=== PATIENT | female | born 1980 | race Caucasian/White ===

== ENCOUNTER 2023-07-04 09:38 | Emergency (ER) | payer BC, SELFPAY ==
[2023-07-04] VITALS (16 sets, daily range): BP systolic 107–163; BP diastolic 51–97; PULSE 108–122; RESP 18–30; TEMP 36.8; O2SAT 96–100
--- NOTE | ~2023-07-04 | CT_ITS ---
EXAMINATION: CT pelvis w con DATE: 07/04/2023 11:03 INDICATION: Labial and perirectal abscess TECHNIQUE: Computed tomography (CT) of the pelvis was performed with 100 CC Omnipaque 350 intravenous contrast. Automated exposure control and iterative reconstruction technique were employed. Exam dose : 1226.26 mGy-cm total exam DLP. COMPARISON: None. FINDINGS: Normal appendix. Approximately 3.9 cm right ovarian cystic lesion is noted. No pelvic mass lesion or adenopathy is noted otherwise. There is extensive fat stranding from the left inguinal area into the left labia, extending posterior ly into the inferior aspect of the left buttock posteromedially. In the posterior medial buttock ther e appear to be a couple of possible small abscess cavities developing, measuring approximately 15 x 2 4 mm and 11 x 14 mm. IMPRESSION: Extensive left inguinal, labial and posteromedial inferior left buttock cellulitis with suggestion of some developing small abscesses in the posteromedial lower left buttock 3.9 mm right ovarian cystic lesion Reviewed, dictated and finalized at [facility]. Reviewed, dictated and finalized at [facility]. IMPRESSION: Extensive left inguinal, labial and posteromedial inferior left bu ttock cellulitis with suggestion of some developing small abscesses in the post eromedial lower left buttock 3.9 mm right ovarian cystic lesion
--- NOTE | 2023-07-04 09:54 | ECG_ITS ---
Measurements Intervals [place] Rate: 117 P: 76 [place]: 139 QRS: 36 QRSD: 91 T: 44 QT: 317 QTc: 443 Interpretive Statements SINUS TACHYCARDIA BASELINE ARTIFACT POSSIBLE LEFT ATRIAL ENLARGEMENT [-0.1mV P WAVE IN V1/V2] NONSPECIFIC ST ABNORMALITY BORDERLINE ECG NO PREVIOUS ECG AVAILABLE FOR COMPARISON Electronically Signed On 07-04-2023 14:41:00 CDT by Prashant Hanson M.D.
--- NOTE | 2023-07-04 09:57 | ED.SKABFB ---
HPI - Skin/Abscess/Foreign Bdy General Chief complaint: Skin/Abscess/Foreign Body <July Moon PA-C - Last Filed: 07/05/23 09:09> Stated complaint: wound to buttocks <July Moon PA-C - Last Filed: 07/05/23 09:09> Time Seen by Provider: 07/04/23 09:39 <July Moon PA-C - Last Filed: 07/05/23 09:09> History of Present Illness HPI narrative: 43-year-old female reports for evaluation for an abscess to her L buttock and L labia. Patient states she noticed a lump in her L glute approximately 1 week ago that was a few centimeters in size. States she forgot about the lesion until a couple days ago she was in the shower and felt that it had grown much larger. States yesterday began spreading into her right labia and had then become painful and more aggravated. She denies known fever, denies abdominal pain, drainage, pus or blood in her stool. She does states she has had nausea and vomiting but has also had a concurrent migraine since not sure if that is due to her migraine or the abscess. <KAREEN Snyder Last Filed: 07/05/23 09:09> Related Data Home medications: Home Medications Medication Instructions Recorded Confirmed metformin 1,000 mg tablet 1,000 mg PO BID 07/04/23 07/04/23 <July Moon PA-C - Last Filed: 07/05/23 09:09> Allergies/Adverse reactions: Allergies Allergy/AdvReac Type Severity Reaction Status Date / Time No Known Allergies Allergy Verified 07/04/23 09:42 <July Moon PA-C - Last Filed: 07/05/23 09:09> Review of Systems Review of Systems: CONSTITUTIONAL: Denies fever, chills EYES: Denies visual changes, redness, or discharge. ENT: Denies rhinorrhea, congestion, sore throat, or otalgia. CARDIOVASCULAR: Denies chest pain, palpitations, or edema. RESPIRATORY: Denies cough or dyspnea. GASTROINTESTINAL: Denies abdominal pain, nausea, vomiting, or diarrhea. GENITOURINARY: Denies dysuria or hematuria. SKIN: See HPI MUSCULOSKELETAL: Denies back pain, joint pain, or myalgia. NEUROLOGIC: Denies headache, numbness, dizziness, or weakness. PSYCHIATRIC: Denies anxiety or depression. <July Moon PA-C - Last Filed: 07/05/23 09:09> [facility] Family History Family History: Family History Mother Family history of autoimmune disorder Father Family history of diabetes mellitus in first degree relative Family history of coronary artery disease Family history of type 2 diabetes mellitus Family history of heart disease in male family member before age 55 Grandparent Family history of malignant neoplasm of breast Family history of amyotrophic lateral sclerosis Diabetes mellitus <July Moon PA-C - Last Filed: 07/05/23 09:09> Social History Social History: Social History Smoking status: Never smoker Alcohol intake: current <July Moon PA-C - Last Filed: 07/05/23 09:09> Exam Narrative: GENERAL: Well-appearing, in no acute distress. Patient resting comfortably in exam bed. She is pleasant and conversational. HEAD: Normocephalic EYES: PERRLA ENT: Nares clear. Mucous membranes moist. Oropharynx without tonsillar hypertrophy exudate or other lesions. NECK: Supple. CHEST: No respiratory distress. Clear to auscultation, no adventitious breath sounds. Kussmaul breathing. HEART: Regular rate and rhythm. No murmur heard. Normal peripheral pulses. ABDOMEN: Soft, nontender, normal active bowel sounds. No CVA tenderness. EXTREMITIES: Normal range of motion. No edema. SKIN: Large area of induration spreading from the mid L buttock into the entire L labia with overlying blanching erythema. There is a ~3cm area of fluctuance to the R buttock. No active drainage. No extension of abscess into rectum. No crepitus on palpation. NEURO: No focal deficits. Alert and oriented x3. PSYCH: Normal mood and
[2023-07-04] MEDS: ONDANSETRON INJ 4 MG/2 ML VIAL IV PUSH (10:07)
[2023-07-04] MEDS: SODIUM CHLORIDE 0.9% IV 1,000 ML 999 ML IV CONT (10:07)
[2023-07-04] MEDS: MORPHINE SULFATE (*CRX) 4 MG/ML INJ IV PUSH (10:07)
--- NOTE | 2023-07-04 10:16 | PC.NURSE ---
BS 374
[2023-07-04 10:19] LABS: Glucose Point of Care 374 mg/dl (65-105)
[2023-07-04 10:24] LABS: Hematocrit 47.3 % (37.0-47.0); Hemoglobin 15.5 g/dL (12.0-15.0); Mean Corpuscular HGB Conc 32.8 g/dl (32-36); Mean Corpuscular Hemoglobin 27.7 pg (26-34); Mean Corpuscular Volume 84.5 fl (80-100); Mean Platelet Volume 9.7 fl (7.4-10.4); Platelet Count Result 670 k/mm3 (150-375); Red Cell Distribution Width 12.8 % (11.5-14.5); White Blood Count 28.9 K/mm3 (4.5-10.0)
[2023-07-04] MEDS: metFORMIN HCL 500 MG TABLET 1000 MG PO (10:33)
[2023-07-04 10:36] LABS: Lactic Acid Reflex 3.7 mmol/L (0.7-2.0)
[2023-07-04 10:40] LABS: Alanine Aminotransferase 29 U/L (6-35); Albumin Level 4.1 g/dL (3.5-5.1); Alkaline Phosphatase 200 U/L (38-126); Anion Gap 23 mmol/L (8-16); Aspartate Amino Transferase 24 U/L (14-36); Blood Urea Nitrogen 8 mg/dL (7-17); Calcium 10.3 mg/dL (8.4-10.2); Carbon Dioxide 9 mmol/L (22-30); Chloride 100 mmol/L (98-107); Estimated CRCL calculation 143 ml/min; Estimated Glomerular Filt Rate > 60; Glucose 396 mg/dL (65-110); Potassium 3.8 mmol/L (3.4-5.0); Sodium 132 mmol/L (137-145)
[2023-07-04 10:45] LABS: Band Neutrophils Percent 12 % (0-6); Basophils Absolute Manual 0.57 K/mm3 (0.0-0.1); Basophils Percent Manual 2 % (0-1); Lymphocytes Absolute Manual 2.02 K/mm3 (1.1-4.5); Metamyelocytes Percent 1 %; Monocytes Absolute Manual 0.86 K/mm3 (0.1-0.90); Monocytes Percent Manual 3 % (3-9); Myelocytes Percent 1 %; Neutrophils Absolute Manual 24.85 K/mm3 (1.7-7.2); Neutrophils Percent Manual 74 % (46-73); Platelet Clumps Present; Platelet Estimate Increased (Adequate); Schistocytes None Seen (NORMAL); Total Cells Counted 100
[2023-07-04 10:47] LABS: Hyperchromasia 2+ (NORMAL)
--- NOTE | 2023-07-04 10:55 | PCRCNOTE ---
Pt. taken to CT, will obtain ABG when pt. returns
--- NOTE | 2023-07-04 11:05 | PC.NURSE ---
Pt to CT scan via stretcher at this time.
[2023-07-04 11:07] LABS: Erythrocyte Sedimentation Rate 14 mm/hr (0-20)
[2023-07-04 11:08] LABS: CRP 35.3 mg/dL (<1.0)
[2023-07-04] MEDS: CEFEPIME 2 GM/NS 50 ML 2 GM/50 ML BAG IVPB (11:09)
[2023-07-04 11:12] LABS: INR 1.2; Prothrombin Time 16.1 Seconds (11.1-14.7)
[2023-07-04 11:13] LABS: Partial Thromboplastin Time 43.2 SECONDS (22.3-36.8)
[2023-07-04 11:19] LABS: Alveolar/Arterial O2 Gradient 16.7 mmHg; Fractional Inspired Oxygen 21 %; HCO3 ABG 7.9 mEq/l (22.0-26.0); Oxygen Content ABG 19.7 %vol (16.0-22.0); Oxygen Saturation ABG 97.4 % (95.0-100.0); Oxyhemoglobin 96.5 % THb (90.0-100.0); PO2 ABG 110.5 mmHg (80.0-100.0); PO2 FiO2 Ratio Arterial Blood 5.26 %; Total Hemoglobin 14.4 g/dL (12.0-18.0)
[2023-07-04 11:20] LABS: pH ABG 7.243 (7.350-7.450)
[2023-07-04 11:21] LABS: Device ROOM AIR; Modified Allen's Test Pass; PCO2 ABG 18.8 mmHg (35.0-45.0); Site Drawn RIGHT RADIAL
[2023-07-04] MEDS: metroNIDAZOLE 500 MG/ISO 100ML 500 MG/100 ML BAG 100 MG IVPB ×2 (11:59→19:01)
[2023-07-04 12:52] LABS: Beta-Hydroxybutyrate/Acetoacetate 4.53 mmol/L (0.02-0.27)
[2023-07-04] MEDS: VANCOMYCIN 1,250 MG/NS 250 ML 1,250 MG/250 ML BAG 166.67 MG IVPB ×2 (12:57→14:30)
[2023-07-04 13:05] LABS: Glucose Point of Care 336 mg/dl (65-105)
[2023-07-04 13:19] LABS: Reflex Lactic Acid Yes or No Add Lactic
[2023-07-04 13:29] LABS: Anion Gap 15 mmol/L (8-16); Blood Urea Nitrogen 7 mg/dL (7-17); Carbon Dioxide 11 mmol/L (22-30); Chloride 103 mmol/L (98-107); Estimated CRCL calculation 165 ml/min; Estimated Glomerular Filt Rate > 60; Glucose 332 mg/dL (65-110); Potassium 4.2 mmol/L (3.4-5.0); Sodium 129 mmol/L (137-145)
[2023-07-04 13:56] LABS: Lactic Acid 1.5 mmol/L (0.7-2.0)
[2023-07-04] MEDS: INSULIN HUMAN REGULAR (*BKC) 100 UNITS/ML IV PUSH (14:11)
[2023-07-04 14:21] LABS: Magnesium 1.5 mg/dL (1.6-2.3)
[2023-07-04 15:09] LABS: Anion Gap 14 mmol/L (8-16); Blood Urea Nitrogen 7 mg/dL (7-17); Calcium 9.3 mg/dL (8.4-10.2); Carbon Dioxide 10 mmol/L (22-30); Chloride 107 mmol/L (98-107); Estimated CRCL calculation 165 ml/min; Estimated Glomerular Filt Rate > 60; Glucose 259 mg/dL (65-110); Potassium 4.4 mmol/L (3.4-5.0); Sodium 131 mmol/L (137-145)
[2023-07-04 15:11] LABS: Glucose Point of Care 292 mg/dl (65-105)
[2023-07-04] MEDS: INSULIN HUMAN REGULAR (*BKC) 100 UNITS in SODIUM CHLORIDE 0.9% IV 99 ML 15 UNITS IV CONT (15:12)
[2023-07-04 15:39] LABS: Hemoglobin A1C 10.3 % (<5.7)
--- NOTE | 2023-07-04 16:02 | PM.CNGS ---
Assessment and Plan Assessment and plan (1) Abscess of perineum: Code(s): L02.215 - Cutaneous abscess of perineum Status: Acute Assessment and Plan: Severe and rapidly spreading perineal infection in an obese diabetic female. With findings on exam and CT scan, I think this is very likely a necrotizing soft tissue infection of the perineum. She is severely ill with sepsis and no clear area of abscess. Recommend transfer to tertiary care facility for treatment as this may involve debridement of much of the perineum. I explained this to the patient and her . I also discussed with the emergency room provider, Nadia Moon PA-C. She will start IV antibiotics and IV fluids and arrange transfer. (2) Sepsis: Qualifiers: Sepsis acute organ dysfunction status: without acute organ dysfunction Sepsis type: sepsis due to unspecified organism Qualified Code(s): A41.9 - Sepsis, unspecified organism Code(s): A41.9 - Sepsis, unspecified organism Status: Acute Assessment and Plan: Due to rapidly progressing infection of perineum described above. Suspect necrotizing soft tissue infection. (3) DKA (diabetic ketoacidosis): Qualifiers: Diabetes mellitus complication detail: without coma Diabetes mellitus type: type 2 Qualified Code(s): E11.10 - Type 2 diabetes mellitus with ketoacidosis without coma Code(s): E11.10 - Type 2 diabetes mellitus with ketoacidosis without coma Status: Acute Assessment and Plan: Further complicating patient's care. History of Present Illness Consult details Consult date: 07/04/23 Requesting physician: July Moon PA-C Narrative: Patient is a 43-year-old woman who 6 days ago while in the shower noticed a nodule in the posterior lower left buttocks. It was not painful but just noticeable. That evening the patient developed a migraine headache and had nausea and vomiting associated with it. This is not abnormal when she has a migraine headache. She basically lost track of the nodule for at least a couple of days but then noticed that it seemed to be larger. It was still not painful or tender. Two days ago the nodule did start to hurt and she noticed rapid swelling in the area around the nodule. She came to the emergency room today. The pain and swelling had involved her left labia and perineum. She has never had anything like this before. The nodule had increased in size further by the time she came to the emergency room such that now even the right labia was very swollen. She is an insulin-dependent diabetic and is morbidly obese with a BMI of 46. In the emergency room, it was found that she had diabetic ketoacidosis as well as a white blood cell count of 28,900 with a marked left shift. CT scan of the pelvis showed extensive swelling and inflammation in the left inguinal, left labia, left buttocks area. There may be some small abscesses forming in the left buttocks area. I was asked to see the patient and came to the emergency room to evaluate. Review of Systems Review of Systems: All systems reviewed & are unremarkable except as noted in HPI and below (HPI and those items noted below) Constitutional: Constitutional: Reports as per HPI, Denies chills and Denies fever(s) Cardiovascular: Cardiovascular: Denies chest pain, Denies diaphoresis, Denies dyspnea and Denies paroxysmal nocturnal dyspnea Respiratory: Respiratory: Denies chest congestion, Denies cough and Denies dyspnea Gastrointestinal: Gastrointestinal: Reports as per HPI Genitourinary: Genitourinary: Reports as per HPI Integumentary/Breasts: Skin/Breast: Reports as per HPI Neurologic: Reports as per HPI and Reports headache(s) [facility] Family History Family History Mother Family history of autoimmune disorder Father Family history of diabetes mellitus in first degree relative Family history of coronary a
[2023-07-04 16:11] LABS: Glucose Point of Care 290 mg/dl (65-105)
[2023-07-04] MEDS: SODIUM CHLORIDE 0.9% IV 1,000 ML 150 ML (17:08)
[2023-07-04 17:11] LABS: Glucose Point of Care 283 mg/dl (65-105)
[2023-07-04 18:04] LABS: Glucose Point of Care 179 mg/dl (65-105)
[2023-07-04 18:29] LABS: Anion Gap 5 mmol/L (8-16); Blood Urea Nitrogen 4 mg/dL (7-17); Calcium 5.7 mg/dL (8.4-10.2); Carbon Dioxide 11 mmol/L (22-30); Chloride 118 mmol/L (98-107); Estimated CRCL calculation 301 ml/min; Estimated Glomerular Filt Rate > 60; Glucose 190 mg/dL (65-110); Potassium 2.5 mmol/L (3.4-5.0); Sodium 134 mmol/L (137-145)
--- NOTE | 2023-07-04 18:33 | ECG_ITS ---
Measurements Intervals [place] Rate: 108 P: 63 NM: 138 QRS: 12 QRSD: 87 T: 3 QT: 315 QTc: 424 Interpretive Statements SINUS TACHYCARDIA BASELINE ARTIFACT BORDERLINE ECG COMPARED TO ECG 07/04/2023 10:14:38 NO SIGNIFICANT CHANGES Electronically Signed On 07-05-2023 13:37:44 CDT by Prashant Hanson M.D.
[2023-07-04] MEDS: HYDROmorphone HCL INJ (*CRX) 1 MG/ML SYR IV PUSH (19:00)
[2023-07-04] MEDS: POTASSIUM CHLORIDE INJ 40 MEQ in SODIUM CHLORIDE 0.9% IV 500 ML 130 MEQ IVPB (19:00)
[2023-07-04] MEDS: POTASSIUM CHLORIDE 20 MEQ PACKET (FOR LIQUID) 40 MEQ PO (19:00)
[2023-07-04] MEDS: CALCIUM GLUC 2,000 MG/NS 100ML 2,000 MG/100 ML BAG 100 MG IVPB (19:01)
[2023-07-04] MEDS: MAGNESIUM SULF 2 GM/WATER 50ML 2 GM/50 ML BAG IVPB (19:01)
--- NOTE | 2023-07-04 19:37 | PC.NURSE ---
Report given to EMS and SICU called to notify of pending arrival.
== END 2023-07-04 19:48 | disposition short-term general hospital (02) ==
PROVIDERS: Emergency Provider Physician Assistant
DX: L03.317 Cellulitis of buttock (principal); A41.9 Sepsis, unspecified organism; E11.10 Type 2 diabetes mellitus with ketoacidosis without coma; Z79.84 Long term (current) use of oral hypoglycemic drugs
CPT/HCPCS: 36415; 36600; 72193; 80048; 80053; 81025; 82010; 82805; 82948; 83036; 83605; 83735; 84100; 85025; 85610; 85652; 85730; 86140; 87040; 93005; 96361; 96365; 96366; 96367; 96368; 96375; 99285; A9270; J0613; J0692; J1170; J1815; J1836; J2270; J2405; J3370; J3475; J3480; J7030; J7040; J7120; Q9967

== ENCOUNTER 2024-09-10 09:06 | Emergency (ER) | payer BC, SELFPAY ==
[2024-09-10 09:23] VITALS: BP 118/71; PULSE 94; RESP 16; TEMP 36.8; O2SAT 100
[2024-09-10 09:27] LABS: EDUAAPPEAR Cloudy; EDUABILI Negative (Negative); EDUABLOOD 3+ (Negative); EDUACOLOR1 Amber; EDUAGLUCOSE Negative (Negative); EDUAKETONE 1+ (Negative); EDUALEUKO 1+ (Negative); EDUANITRATE Positive (Negative); EDUAPROTEIN 2+ (Negative)
--- NOTE | 2024-09-10 09:31 | ED.FEMALEGU ---
HPI - Female Genitourinary General Chief complaint: Urogenital-Female Stated complaint: UTI Time Seen by Provider: 09/10/24 09:36 Source: patient and RN notes reviewed Mode of arrival: ambulatory Limitations: no limitations History of Present Illness HPI Narrative: 44-year-old female presents with concern for urinary tract infection. She reports 2 day history of dysuria, frequency, urgency, back pain, fever, aches, chills, sweats. She reports history of urinary tract infections, she had one 3 weeks ago where she had the same symptoms and she was treated with Macrobid. MD elicited complaint: UTI Related Data Home Medications ?Medication ?Instructions ?Recorded ?Confirmed ?Last Taken ?Type Mounjaro 09/10/24 Unknown History blood-glucose sensor (Dexcom G7 09/10/24 Unknown History Sensor device) trazodone .ROUTE 09/10/24 Unknown History Allergies Allergy/AdvReac Type Severity Reaction Status Date / Time No Known Allergies Allergy Verified 09/10/24 09:21 Review of Systems Review of Systems: CONSTITUTIONAL: Reports malaise, chills, sweats, fever. CARDIOVASCULAR: Denies chest pain, palpitations, or edema. RESPIRATORY: Denies cough or dyspnea. GASTROINTESTINAL: Denies abdominal pain, nausea, vomiting, diarrhea GENITOURINARY: Reports dysuria, frequency, urgency, flank pain SKIN: Denies rash or itching. MUSCULOSKELETAL: Reports back pain, myalgia. All systems reviewed & are unremarkable except as noted in HPI and below PMFSH Family History Family History Mother Family history of autoimmune disorder Father Family history of diabetes mellitus in first degree relative Family history of coronary artery disease Family history of type 2 diabetes mellitus Family history of heart disease in male family member before age 55 Grandparent Family history of malignant neoplasm of breast Family history of amyotrophic lateral sclerosis Diabetes mellitus Social History Social History Smoking status: Never smoker Alcohol intake: current Comments At time of signature, agree with nursing past medical, surgical, social and family history. There is no relevant family history pertinent to the presenting complaint Exam Narrative: GENERAL: Nontoxic-appearing, well-nourished, and in no acute distress. HEAD: Normocephalic. EYES: PERRLA, conjunctivae clear. NECK: Supple. No lymphadenopathy CHEST: Clear to auscultation. No respiratory distress. HEART: Regular rate and rhythm. ABDOMEN: Soft, nontender upon palpation, nondistended, normal active bowel sounds, no palpable or pulsatile masses, no guarding. No CVA tenderness SKIN: Warm, dry, no rash. NEURO: Alert and oriented x3. PSYCH: Normal mood and affect Course Course Emergency Course: Patient is aware of diagnosis, understands and agrees to treatment plan. Anticipatory guidance given. Patient agrees to follow-up as directed and is aware of reasons to seek care at the emergency department. Portions of this record may have been created with voice recognition software Level of Care: Express Care Visit Vital Signs Vital signs: Vital Signs Temperature 98.3 F 09/10/24 09:23 Pulse Rate 94 09/10/24 09:23 Respiratory Rate 16 09/10/24 09:23 Blood Pressure 118/71 09/10/24 09:23 Pulse Oximetry 100 09/10/24 09:23 Oxygen Delivery Room Air 09/10/24 09:23 Temperature 98.3 F 09/10/24 09:23 Pulse Rate 94 09/10/24 09:23 Respiratory Rate 16 09/10/24 09:23 Blood Pressure 118/71 09/10/24 09:23 Pulse Oximetry 100 09/10/24 09:23 Oxygen Delivery Room Air 09/10/24 09:23 Reviewed. MDM - Female Genitourinary MDM Narrative Medical decision making narrative: Exam findings and UA show no acute concerns or changes; patient is non-toxic appearing and is in no distress. Patient is appropriate for outpatient treatment and follow-up. Differential Diagnosis Differential diagnosis: Likely urinary tract infection and cystitis Lab Data Labs: Lab Results 09/10/24 Range/Units 09:23 POC Urine Color Sarai POC Urine Clarity Cloudy POC Urine pH 6.0 POC Ur Specif [place] 1.020 POC Urine Protein 2+ (Negative) POC Ur Glucose (UA) Negative (Negative) POC Urine Ketones 1+ (Negative) POC Urine Blood 3+ (Negative) POC Urine Nitrite Positive (Negative) POC Urine Bilirubin Negative (Negative) POC Urine Urobilinogen 2.0 POC U Leukocyte Esteras 1+ (Negative) Critical Care Time Critical Care Time Critical Care Time: No Discharge Plan Discharge Clinical Impression: Urinary tract infection Patient Disposition: Home, Self-Care Condition: Stable Instructions: Antibiotic Form, Urinary Tract Infection in Women (ED) Additional Instructions: We will send a urine culture to the lab; if the culture identifies an organism that the prescribed antibiotic will not treat, you will receive a phone call from an urgent care staff member and an appropriate antibiotic will be prescribed. -Your symptoms should begin to improve within a day of starting antibiotics. But you should finish all the antibiotic pills you get. Otherwise your infection might come back. -Also recommend: increase water intake. Tylenol/ibuprofen as needed for pain or fever -Follow-up with your primary care provider for urine recheck or seek ER visit if condition worsens with high fever, nausea, vomiting and severe back pain. Patient Language: Romansh Prescriptions: New ciprofloxacin HCl 500 mg tablet 500 mg PO Q12H 7 Days Qty: 14 0RF No Action (DME) Dexcom G7 Sensor Device MISCELLANEOUS Mounjaro trazodone .ROUTE Follow-up/Referrals: Renetta,Jerel Jose MD [Primary Care Provider] - Time of Disposition: 09:49
== END 2024-09-10 09:55 | disposition home or self-care (01) ==
PROVIDERS: Emergency Provider Nurse Practitioner; PCP Family Medicine
DX: N39.0 Urinary tract infection, site not specified (principal); B96.20 Unspecified Escherichia coli [E. coli] as the cause of diseases classified elsewhere
CPT/HCPCS: 81003; 87077; 87086; 87186; 99213; G0463

== ENCOUNTER 2024-12-05 20:50 | Emergency (ER) | payer OTHER, BC, SELFPAY ==
--- NOTE | ~2024-12-05 | XR_ITS ---
HISTORY: puncture COMPARISON: None TECHNIQUE: 2 views of the right great toe were performed FINDINGS: No acute or subacute fracture. Joint spaces are preserved and alignment is maintained. Along the medial side of the distal metaphysis of the first metatarsal is a submillimeter oval-shaped radiopaque density for which a foreign body can't be excluded. Multiple views were performed, however this abnormality was not demonstrated specifically to be withi n the soft tissues. This may simply be an asymmetric density of bone. Please correspond with these fi ndings to the patient's clinical examination for further evaluation. Age-appropriate mineralization. IMPRESSION: No acute fracture or dislocation. Indeterminate findings along the medial distal metaphysis of the first metatarsal (as detailed above) for which a radiopaque foreign body cannot be excluded. Please correspond with these findings to the patient's clinical examination for further evaluation. Reviewed, dictated and finalized at location A. IMPRESSION: No acute fracture or dislocation. Indeterminate findings along the medial distal metaphysis of the first metatars al (as detailed above) for which a radiopaque foreign body cannot be excluded. Please correspond with these findings to the patient's clinical examination for further evaluation.
--- OUTSIDE RECORDS SUMMARY | 2024-12-05 20:52 | XMS_ITS ---
Author Organization 1 OF Jonatan huffman [facility] Address [address] [address] [place] [address] Care Team Providers Care Auditor In Charge Name Role Phone Jerel Jackson Primary Care Provider Jarred Donnelly Unavailable [phone] Allergies No Known Allergies REASON FOR VISIT blister on toe Medications Medication SIG (Take, Route, Frequency, Duration) Notes Start Date End Date Status Doxycycline Monohydrate 100 MG 1 tablet Orally every 12 hrs for 7 days 08/18/2022 Not-Taking Doxycycline Hyclate 100 MG 1 tablet Oral ly Twice a day for 7 days 03/26/2023 Not-Taking metroNIDAZOLE 500 MG 1 tablet Orally every 8 hrs for 10 day(s) 04/24/2023 Not-Taking metroNIDAZOLE 500 MG 1 tablet Orally every 8 hrs for 7 days 04/02/2023 Not-Taking Cipro 500 MG 1 tablet Orally Twice a day for 7 days 03/26/2023 Not-Taking Doxycycline Hyclate 100 MG 1 tablet Oral ly Twice a day for 7 days 01/29/2024 Not-Taking Mounjaro 10 MG/0.5ML as directed Subcutaneous Active Doxycycline Hyclate 100 MG 1 tablet Oral ly Twice a day for 7 days 03/17/2024 Not-Taking Tirzepatide Active hydroCHLOROthiazide Not-Taking traZODone HCl 50 MG 1 tablet at bedtime as needed Orally Once a day Active Cefadroxil 500 MG 1 capsule Orally every 12 hrs for 7 days 10/17/2024 Active Atorvastatin Calcium 40 MG 1 tablet Oral ly Once a day Active Problems Problem Type SNOMED Code ICD Code Onset Dates Problem Status W/U Status Risk Notes Problem [id number] Non-pressure chronic ulcer of other part of right foot with fat layer exposed (L97.512) Active confirmed Vital Signs Height 71 in 10/17/2024 Weight 245 lbs 10/17/2024 BMI 34.17 kg/m2 10/17/2024 Encounters Encounter Location Date Provider Diagnosis 3 [facility] Damon Lucio DPM [address] [place] [address] 10/17/2024 Jarred Taveras Paronychia of toe of right foot L03.031 ; Ingrowing nail L60.0 ; Toe pain, right M79.674 ; Non-pressure chronic ulcer of other part of right foot with fat layer exposed L97.512 and Type 2 diabetes mellitus with foot ulcer E11.621 Assessments Encounter Date Diagnosis (ICD Code) Assessment Notes Treatment Notes Treatment Clinical Notes Section Notes 10/17/2024 Paronychia of toe of right foot (ICD-10 - L03.031) 10/17/2024 Ingrowing nail (ICD-10 - L60.0) Discussed ingrown toenail condition and explained in detail conservative and surgical options of care including debridement / slant back procedure vs nail avulsion vs matrixectomy. Discussed pros and cons of each procedure including temporary relief vs more permanent relief with matrixectomy procedure but longer healing time. Patient elected to proceed with avulsion procedure of the affected toe(s). 10/17/2024 Toe pain, right (ICD-10 - M79.674) 10/17/2024 Non-pressure chronic ulcer of other part of right foot with fat layer exposed (ICD-10 - L97.512) 10/17/2024 Type 2 diabetes mellitus with foot ulcer (ICD-10 - E11.621) Plan Of Treatment Medication Medication Name Sig Start Date Stop Date Notes Cefadroxil 500 MG 1 capsule Orally every 12 hrs for 7 days 10/17/2024 Treatment Notes Assessment Notes Ingrowing nail Discussed ingrown to enail condition and explained in detail conservative and surgical options of care including debridement / slant back procedure vs nail avulsion vs matrixectomy. Discussed pros and cons of each procedure including temporary relief vs more permanent relief with matrixectomy procedure but longer healing time. Patient elected to proceed with avulsion procedure of the affected toe(s). Next Appt Details Follow Up: 2 Weeks, Reason: Procedure Notes * Category Sub-Category Detail Notes NAIL PROCEDURES: Nail avulsion (33410): Discusse d procedure and associated recovery period as well as potential risks and complications including, but not limited to recurrence of ingrown toenail, infection, worsening of condition, loss of entire toenail, loss of digit. Advised potential need for resection hypertrophic periungual tissue to help prevent recurrence of the condition. No guarantees given. Patient agreed to proceed with procedure consisting of:,total nail avulsion of: T6. Consent form reviewed and signed by patient / guardian. Local anesthesia was not obtained secondary to severe neuropathy., Aseptic prep of the toe(s) performed with betadine and following confirmation of anesthesia, , Avulsion procedure performed utilizing sterile instrumentation and atraumatic technique with resection of any hypertrophic granulation tissue as necessary. , The wound was then irrigated with betadine. Bacitracin ointment and DSD was applied to the wound and post-op instructions were dispensed and discussed. STERILE TRAY & INSTRUMENTS Utilization o f sterile tray and instrumentation along with aseptic technique. (A4550) Progress Notes * STEFANY DOB: [birth year] (44 yo F)Acc No.[id number]:10/17/2024 Progress Notes Patient: Jessica RICO Provider: Yuliana Taveras DPM :1980 A ge:44 Y S ex:Female Date:10/17/2024 Address:[facility] Pcp:Jerel Jackson Subjective: * Chief Complaints: * B edilson on toe * HPI: Yesenia Castellano assisting with visit:: Chart Prep Daily desai. HPI/Rooming: Daily jordan reason for visit:: 44 y ear old female PTO with chief complaint of blister on Right T6. She states this issue started after yesterday and has been bothering her since. Patient states she has no idea how she got the blister, but she has found herself on her feet a lot the past couple weeks. * Medical History: * Medications: T akingAtorvastatin Calcium 40 MG Tablet 1 tablet Orally Once a day Tirzepatide traZODone HCl 50 MG Tablet 1 tablet at bedtime as needed Orally Once a day Mounjaro 10 MG/0.5ML Solution Pen-injector as directed Subcutaneous Taking Atorvastatin Calcium 40 MG Tablet 1 tablet Orally Once a day Taking Tirzepatide Taking traZODone HCl 50 MG Tablet 1 tablet at bedtime as needed Orally Once a day Taking Mounjaro 10 MG/0.5ML Solution Pen-injector as directed Subcutaneous Not-Taking/PRNhydroCHLOROthiazide Doxycycline Hyclate 100 MG Tablet 1 tablet Orally Twice a day Doxycycline Hyclate 100 MG Tablet 1 tablet Orally Twice a day metroNIDAZOLE 500 MG Tablet 1 tablet Orally every 8 hrs metroNIDAZOLE 500 MG Tablet 1 tablet Orally every 8 hrs Doxycycline Monohydrate 100 MG Tablet 1 tablet Orally every 12 hrs Doxycycline Hyclate 100 MG Tablet 1 tablet Orally Twice a day Cipro 500 MG Tablet 1 tablet Orally Twice a day Not-Taking/PRN hydroCHLOROthiazide Not- Taking/PRN Doxycycline Hyclate 100 MG Tablet 1 tablet Orally Twice a day Not-Taking/PRN Doxycycline Hyclate 100 MG Tablet 1 tablet Orally Twice a day Not-Taking/PRN metroNIDAZOLE 500 MG Tablet 1 tablet Orally every 8 hrs Not-Taking/PRN metroNIDAZOLE 500 MG Tablet 1 tablet Orally every 8 hrs Not-Taking/PRN Doxycycline Monohydrate 100 MG Tablet 1 tablet Orally every 12 hrs Not-Taking/PRN Doxycycline Hyclate 100 MG Tablet 1 tablet Orally Twice a day Not-Taking/PRN Cipro 500 MG Tablet 1 tablet Orally Twice a day DiscontinuedLORazepam 0.5 MG Tablet 1 tablet at bedtime as needed Orally Once a day Prochlorperazine Gabapentin dexAMETHasone 20 MG Tablet as directed Orally Zofran metFORMIN HCl Medication List reviewed and reconciled with the patientDiscontinued LORazepam 0.5 MG Tablet 1 tablet at bedtime as needed Orally Once a day Discontinued Prochlorperazine Discontinued Gabapentin Discontinued dexAMETHasone 20 MG Tablet as directed Orally Discontinued Zofran Discontinued metFORMIN HCl Medication List reviewed and reconciled with the patient * Allergies: N .K.D.A.no[Allergies Verified] Objective: * Vitals: W t:245lbs, Wt-k.13 kg, Ht:71in, BMI:34.17Index. * Examination: G eneral Examination: Constitutional / Appearance: N o acute distress , Well nourished, Appropriate personal hygiene. Mental status: C ooperative, Oriented to person, place and time, Mood and affect: normal, Judgement and intellect: normal with appropriate response to questions. Shoes today: X XXX. T here is a sanguinous bulla noted to the distal aspect of the right second digit with nail involvement with associated erythema but no formal cellulitis or malodor which after avulsion reveals a full-thickness ulceration without probing to bone. W ound Evaluation: : Wound A L ocation: Distal T6, Date of initial evaluation: 10/17/2024 Measurement Hx (following debridement): 10/17/2024: 2.5 cm x 2.9 cm x 0.2 cm depth Appearance today:,, (wound depth: subcutaneous / fatty tissue) SEE EXAM. L ower Extremity DERM: : Ingrown nail / onychia noted to: N ail plate(s) of T6, with periungual erythema and edema, drainage, No cellulitis., No granuloma.. Assessment: * Assessment: 1. I ngrowing nail - L60.0 2 . P aronychia of toe of right foot - L03.031 (Primary) 3 . T oe pain, right - M79.674 4 . N on-pressure chronic ulcer of other part of right foot with fat layer exposed - L97.512 5 . T ype 2 diabetes mellitus with foot ulcer - E11.621 Plan: * Treatment: 2. I ngrowing nail Notes:Discussed ingrown toenail condition and explained in detail conservative and surgical options of care including debridement / slant back procedure vs nail avulsion vs matrixectomy. Discussed pros and cons of each procedure including temporary relief vs more permanent relief with matrixectomy procedure but longer healing time. Patient elected to proceed with avulsion procedure of the affected toe(s). * Procedures: N AIL PROCEDURES:: Nail avulsion (19018): D iscussed procedure and associated recovery period as well as potential risks and complications including, but not limited to recurrence of ingrown toenail, infection, worsening of condition, loss of entire toenail, loss of digit. Advised potential need for resection hypertrophic periungual tissue to help prevent recurrence of the condition. No guarantees given. Patient agreed to proceed with procedure consisting of:,total nail avulsion of: T6. Consent form reviewed and signed by patient / guardian. Local anesthesia was not obtained secondary to severe neuropathy., Aseptic prep of the toe(s) performed with betadine and following confirmation of anesthesia, , Avulsion procedure performed utilizing sterile instrumentation and atraumatic technique with resection of any hypertrophic granulation tissue as necessary. , The wound was then irrigated with betadine. Bacitracin ointment and DSD was applied to the wound and post-op instructions were dispensed and discussed.. STERILE TRAY & INSTRUMENTS U tilization of sterile tray and instrumentation along with aseptic technique. (A4550). * Procedure Codes: 1 1730 REMOVAL OF NAIL PLATE, Modifiers: T6 A4550 STERILE TRAY * Follow Up: 2 Weeks * Images: * TANCE ABUSE CLINICIAN Sign off status: Completed true * Provider: Yuliana Taveras DPM Date: 0 10/17/2024 Generated for Harvinder núñez/Shauna/Gavinitting on: 0 12/05/2024 08:52 PM CDT History and Physical Notes * HPI (History of Present Illness) Category Sub-Category Detail Notes Category Not es Primary reason for visit: 44 year old female PTO with chief complaint of blister on Right T6. She states this issue started after yesterday and has been bothering her since. Patient states she has no idea how she got the blister, but she has found herself on her feet a lot the past couple weeks. MA assisting with visit: HPI/Rooming: Wing Chart Prep Wing Examination Category Sub-Category Detail Notes Category Not es General Examination Mental status: Cooperative, Oriented to person, place and time, Mood and affect: normal, Judgement and intellect: normal with appropriate response to questions There is a sanguinous bulla noted to the distal aspect of the right second digit with nail involvement with associated erythema but no formal cellulitis or malodor which after avulsion reveals a full-thickness ulceration without probing to bone. Shoes today: XXXX Exam unchanged from prior visit: Constitutional / Appearance: No acute di stress , Well nourished, Appropriate personal hygiene Lower Extremity DERM: Ingrown nail / kacey ildefonso noted to: Nail plate(s) of T6, with periungual erythema and edema, drainage, No cellulitis., No granuloma. Wound Evaluation: Wound A Location: Dist al T6 , Date of initial evaluation: 10/17/2024 Measurement Hx (following debridement): 10/17/2024: 2.5 cm x 2.9 cm x 0.2 cm depth Appearance today:,, (wound depth: subcutaneous / fatty tissue) SEE EXAM
--- OUTSIDE RECORDS SUMMARY | 2024-12-05 20:53 | XMS_ITS | Encounter Summary ---
Author Organization [facility] Healthcare Address [address] [place] [address] Care Team Providers Care Burr Bench Hand Name Role Phone Jerel Jackson MD Primary Care Provider + Sallie Etienne MD Unavailable Darcy Hart MD Unavailable [phone] Encounter Details Date Type Department Care Team (Late st Contact Info) Description 08/25/2024 Telephone [facility] Advanced Medicine Radiation Oncology [address] [facility] Advanced Medicine [facility] Level [place], [place] [id number] Jessica Storey NP [address] [facility] [address] [place], [place] [id number] Social History Tobacco Use Types Packs/Day Years Used Date Smoking Tobacco: Never Smokeless Tobacco: Never AUDIT-C Answer Date Recorded Q1: How often do you have a drink containing alcohol? Never 12/29/2023 Q2: How many drinks containi ng alcohol do you have on a typical day when you are drinking? Patient does not drink Q3: How often do you have si x or more drinks on one occasion? Never 12/29/2023 PHQ-2 Answer Date Recorded PHQ-2 Total Score (If total score is 3 or more points, staff should administer the PHQ-9) 0 08/18/2024 Hunger Vital Sign Answer Date Recorded Within the past 12 months, y ou worried that your food would run out before you got the money to buy more. Never true 09/10/19 24 Within the past 12 months, t he food you bought just didn't last and you didn't have money to get more. Never true 09/10/2023 Personal Safety Answer Date Recorded Have you ever been in or are you currently in a harmful physical or emotional relationship or is someone making you feel afraid or unsafe? Denies 12/29/2023 Comments No Sex and Gender Information Value Date Recorded Sex Assigned at Not on file Legal Sex Female 8:38 AM SET UP [employer] Gender Identity Not on file Sexual Orientation Not on file documented as of this encounter Plan of Treatment Upcoming Encounters Date Type Department Care Team (Late st Contact Info) Description 12/06/2024 11:20 AM CDT Office Visit [facility] Obstetrics and Gynecology [address] [facility] 13th [place] [address] [place] [id number] Darcy Hart MD [address] [place] [phone] [place], [place] [phone] Encounter for routine cancer follow-up (Primary Dx); Endometrioid adenocarcinoma of uterus (HCC); Hypertension, unspecified type documented as of this encounter Visit Diagnoses Not on filedocumented in this encounter Care Teams Burr Bench Hand Relationship Specialty Start Date End Date Jerel Jackson MD [address] [place] [id number] PCP - General Family Medicine 12/04/21 Sallie Etienne MD [address] [facility] [address] [place] [address] Radiation Oncologist Radiation Oncology 04/15/24 Darcy Hart MD [address] [facility] DIV OBGYN GYNECOLOGIC ONCOLOGY[address] [address] Surgeon Gynecologic Oncology 04/18/24 documented as of this encounter
--- OUTSIDE RECORDS SUMMARY | 2024-12-05 20:53 | XMS_ITS ---
Author Organization [facility] Address [address] [place] [address] Care Team Providers Care Waterworks Pump Station Operator Name Role Phone Jerel Jackson MD Primary Care Provider + Sallie Etienne MD Unavailable Darcy Hart MD Unavailable [phone] Active Problems Problem Noted Date Diagnosed Date Hammertoe of right foot 12/05/2024 Endometrial carcinoma 12/28/2023 Annual physical exam 10/30/2023 Endometrial cancer 09/11/2023 JANUSZ (generalized anxiety disorder) 07/20/2023 Assessment & Plan (2024 2:40 PM CDT): - stable - continue hydroxyzine Assessment & Plan (09/08/2023 2:36 PM CORPORATE LEGAL SECRETARY): - stable - continue current medication - consider counseling Assessment & Plan (07/20/2023 3:43 PM CORPORATE LEGAL SECRETARY): - uncontrolled - will start hydroxyzine 25mg tid prn - if sx continue will consider adding prozac - pt not interested in counseling at this time - fu in 2 mo or sooner prn Psychophysiological insomnia 07/20/2023 Assessment & Plan (2024 2:39 PM CDT): - stable - continue trazodone Assessment & Plan (09/08/2023 2:36 PM CORPORATE LEGAL SECRETARY): - stable - continue current medication Assessment & Plan (07/20/2023 3:43 PM CORPORATE LEGAL SECRETARY): - uncontrolled - start trazodone 50mg qhs, may increase to 100mg qhs as needed for sleep - f/u in 2 mo Dyslipidemia 07/15/2023 Assessment & Plan (06/01/2024 4:30 PM CDT): 44 y.o. and female with mixed hyperlipidemia associated with type 2 diabetes mellitus, on Rosuvastatin 40 mg/day; most recent lipid profile reviewed. Diabetes and dyslipidemia (increased LDL-C and/or TGs) are both high risk conditions for ASCVD ASCVD 10-year risk score = 1.0% (Mod-intensity statin recommended because of known diabetes and 10-year risk <7.5%) Lab Results Component Value Date CHOL 117 12/01/2023 TRIG 130 12/01/2023 HDL 36 (L) 12/01/2023 LDLCALC 55 12/01/2023 No results found for: LDLDIRECT No results found for: LIPOA No results found for: APOB No results found for: HSCRP Consider checking Lp(a) and ApoB; especially if personal history or first-degree relative with premature ASCVD (particularly if otherwise considered low-risk), severe hypercholesterolemia (LDL-C >=190), or borderline ASCVD risk (10-year risk = 5 to 7.5%) Levels of apo B and LDL-C are discordant in 20% of patients, including those with elevated triglycerides, type 2 diabetes or obesity. In some patients, LDL-C levels can appear satisfactory, but the true level of circulating atherogenic particles is actually high. An elevated apo B level in these patients predicts a higher risk of atherosclerotic cardiovascular disease. In such patients, treatment with a lipid-lowering drug should be considered. Plan: 1) Repeat lipid panel at least annually; check Lp(a), hs-CRP and ApoB as indicated 2) Weight control, exercise, diet (low saturated fat and sugar), smoking cessation (if applicable) 3) Continue Atorvastatin (Lipitor) 40 mg/day (for both LDL-C & TG reduction) - confirm statin adherence 4) No indications for adding Ezetimibe (Zetia) 5) No indications for adding other TG-lowering agents Assessment & Plan (2024 2:40 PM CDT): - stable - continue atorvastatin Assessment & Plan (07/20/2023 3:42 PM CORPORATE LEGAL SECRETARY): - stable - continue current medication Polycystic ovarian syndrome 07/15/2023 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 Assessment & Plan (07/10/2023 7:25 AM CDT): Endometrial thickening up to 3.[address] scan. Also noted right adnexal 4.2 cm cyst. - Consult to gynecology - qualitative beta HCG was positive, quantitative beta HCG <5 07/06 D&C while in OR with ACES 07/08 path reviewed by [employer]ER AND REAMER (see below), [employer] REAMER will disclose results, plan to involve [employer]-ONC, anticipate initiation of oral progestin + IUD vs operative management -- final recs pending -[employer]ER: given the diagnosis of endometrioid adenocarcinoma of the uterus, FIGO grade 1. We reviewed this diagnosis and the potentially curable nature as well as potential treatment options of surgical management or hormonal management or a combinations of both. -She will follow up with as an outpatient with the Gynecology team at [facility]. They are recommending Megace 80 mg BID. They will make her appointment and she was given their office number [phone]. Path Diagnosis: Endometrium, biopsy - Endometrioid adenocarcinoma, FIGO grade 1 - Biomarkers pending Uncontrolled type 2 diabetes mellitus with hyper glycemia 12/04/2021 Assessment & Plan (09/08/2023 2:36 PM CORPORATE LEGAL SECRETARY): - stable - continue current medication Assessment & Plan (07/20/2023 3:41 PM CORPORATE LEGAL SECRETARY): - continue with mounjaro, lantus and metformin per endo Assessment & Plan (12/04/2021 12:00 PM CDT): - start metformin 1,000mg bid (taper up dose) - start ozempic0.25mg qwk, increase dose in 1 mo - discussed the risks/benefits/side effects of medication - f/u in 1 mo Morbid (severe) obesity due to excess calories 0 12/04/2021 Assessment & Plan (2024 2:40 PM CDT): - rec healthy diet and regular exercise Assessment & Plan (07/20/2023 3:41 PM CORPORATE LEGAL SECRETARY): - rec healthy diet and regular exercise Assessment & Plan (12/04/2021 12:00 PM CDT): - start ozempic and metformin - work in improved diet and increased exercise Vitamin D deficiency 07/08/2019 Assessment & Plan (06/01/2024 4:26 PM CDT): 44 y.o. female with history of vitamin D deficiency-insufficiency taking maintenance Vit D3 2,000-5,000 IU/day Latest Vitamin 25(OH)-D level No results found for: 25HYDROVITD (21-29 ng/ml, Insufficiency) (<20 ng/ml, Deficiency) Denies active symptoms: no fatigue, no bone pain, no muscle gylbnycr-vlstk-lmirnf, no mood changes (depression). Risk factors: no dark-colored skin, (+) obesity, no bariatric surgery, no cystic fibrosis, no Crohn's disease, no celiac disease, no hepatic-renal disease Plan: 1) Check Vit 25(OH)-D level (if not done in last 3 months) 2) Start Vit D2 50,000 IU/weekly x 8-12 weeks; then transition to maintenance Vit D3 2,000-5,000 IU/day Type 2 diabetes mellitus wit h hyperglycemia, without long-term current use of insulin 03/08/2019 Overview (07/17/2023): increase metformin to 1gm BID get labs done start lisinopril 5mg daily follow up in 3 months sooner if blood sugars rising or symptomatic Assessment & Plan (06/01/2024 4:25 PM CDT): 44 y.o. female with type 2 diabetes mellitus, off basal insulin, well- controlled, complicated by peripheral neuropathy, hyperlipidemia, endometrial adenocarcinoma of uterus s/p hysterectomy salpingo-oophorectomy and s/p C6 carbo/taxol, obesity, PCOS, vitamin D deficiency Glycemic control within target range (target A1c < 7.0%) No episodes of hypoglycemia; adherent with medications and BG monitoring with glucometer and/or No CGM No results found for: CPEPTIDE , AFA70NK , IA2AB Lab Results Component Value Date HGBA1C 5.1 06/01/2024 GLUCOSE 116 04/07/2024 Denies recent symptoms of hyperglycemia (no polyuria, no polydipsia, no increased hunger, no unintentional weight loss, no blurry vision), no recurrent infections (e.g., no urinary tract infections, no skin infections). No issues obtaining insulin and/or other glucose-lowering medications. Has adequate blood sugar monitoring supplies. Adheres to a healthy diet and hoping to get back to a regular exercise regimen. it administrator for Ophthalmology practice Plan: 1) Medications OFF Metformin XR 500 mg PO 2 tabs after breakfast and lunch (monitor GFR >30, check B12 level) - trial off for next 3 months to reduce pill burden CONTINUE GLP-1 - Tirzepatide (Mounjaro) 10 mg SQ weekly - recently started this dose Statin - Atorvastatin (Lipitor) 40 mg/day Not on TODD-ARB but BP at target 2) Monitoring BG testing supplies - glucometer and/or continuous glucose monitor (CGM) Emergency glucagon treatment product, if appropriate Gvoke HypoPen or Zegalogue premixed glucagon auto-injector Baqsimi glucagon nasal powder Hgb A1C, renal function panel, lipid profile, urine microalbumin:Cr Follow-up with ambulatory diabetes education Retinal examination - follow-up with Ophthalmology Foot care evaluation - follow-up with Podiatry Vaccinations: Flu (yearly), Tdap, Hep B, Herpes zoster (50 yr), COVID-19 Assessment & Plan (2024 2:39 PM CDT): - stable - continue metformin, lantus, mounjaro per endo Primary osteoarthritis of right knee 03/26/2017 Migraines 06/26/2016 Current Treatment and Therapy Plans IV Maintenance Therapy Plan* Plan Start Date:12/11/2023 Plan Provider:Darcy Hart MD Linked Problems Endometrioid adenocarcinoma of uterus (HCC) Treatment Medications No medications scheduled. Venous Sampling from a Catheter* Plan Start Date:01/14/2024 Plan Provider:Darcy Hart MD Linked Problems Endometrial cancer (HCC)Karie al physical exam Treatment Medications No medications scheduled. Past Treatment and Therapy Plans Oncology Chemotherapy Treatment Plan Name Start Date Discontinue Date Treatment Medications Discontinue Reason Plan Provider Cycles PACLItaxel TITRATION / CARBOplatin (AUC 5) 21 Day Cycles - [employer]ER AND REAMER 12/08/2023 04/22/2024 CARBOplatin (by AUC:GOG) (PARAPLATIN)CA RBOplatin (PARAPLATIN) IVPB in 250 mL (by AUC: GOG)PACLitaxel (TAXOL)PACLIta xel (TAXOL) IVPB in 500 mL Therapy Complete Darcy Hart MD 6 of 6 cycles started Radiation Treatments * Course [id number] - 07/01/2024 Treatment Period Energy Fraction Dose Fractions Total Dose Plans Planned [id number] 07/01/2024 - 07/01/2024 600 2 / 1,200 WHOLE PELVIS 05/18/2024 - 07/01/2024 180 28 / 5,040 Reference Points Delivered BT1_DPV 07/01/2024 - 07/01/2024 1,200 [id number] 05/18/2024 - 07/01/2024 5,040 Lifetime Dose Tracking * Chemical Lifetime Dose Automatic Entry Manual Entr y Fluoro Time 1.2 minutes 1.2 minutes 0 minutes Air kerma at the reference point (Ka,r) 7 mGy 7 mGy 0 mGy DLP 3,977 mGycm 3,977 mGycm 0 mGycm Resolved Problems Problem Noted Date Diagnosed Date Resolved Date MSSA bacteremia 12/31/2023 2024 Assessment & Plan (01/22/2024 9:36 AM CDT): - She remains on Cefazolin 2g IV Q8H (12/28 - 01/25) for MSSA Bacteremia and port infection and tolerating well. Port removed 12/28 - Denies fever, chills, night sweats, N/V, and diarrhea. Also denies chest pain, SOB - Left arm PICC line looks great with no concern for infection - She will complete her Cefazolin therapy on 01/25 and keep PICC line in place for remaining 3-4 chemo treatments. We will transfer line care to the oncology team after 01/25 - Discussed the rationale for treatment, risk of recurrent infections, signs/symptoms of recurrent infection, and to contact ID clinic with any questions or concerns RTC PRN Discharge planning issues 07/07/2023 Assessment & Plan (07/10/2023 11:06 AM CDT): 07/07 return to OR 07/08 for partial closure and VAC change 07/08 ADD in AM pending diabetes education and continued glucose stability, PT cleared for home, plan home health for drain and wound on discharge - case management aware 07/10 Discharging home with . They are comfortable with drain care and wound care. Diabetic ketoacidosis 07/05/20232023 Assessment & Plan (07/10/2023 11:17 AM CDT): Noted to have DKA prior to admission at OSH. Upon admission, AG 9, glucose 234. A1c of 10.7. 07/05 - weaning insulin gtt from 6 units/hr, glucose 172, holding home metformin 07/08 Endo following, BG controlled with insulin regimen, hospice educator consulted, plan for teaching and dispo to home in AM 07/09 Endocrinology following, awaiting final discharge recommendations. She does have a meter at home but was not checking her blood glucose daily. Accountant Machine Processing will meet with her today. 07/10 DC plan below. para educator went over injecting lantus pen and checking blood glucose levels. She also has a Dexcom applied. She will follow up with Endocrinology as below. Discharge recommendations: Basal insulin - insulin glargine 14 units s.c. q HS. Metformin 1000 mg twice daily - hold for nausea or brain fog Glucose check twice daily at varied times and as needed - before meals, bedtime, 02:00 Needs to establish with PCP Appt with Dr. Haines on 07/15/23 Outpatient hospice educator appt 07/17/23 at 3pm At time of next visit, consider wean from insulin in favor of GLP-1 analogue. No SGLT-2 inhibitors in current medical context. GLP 1 gonzalez check: Ozempic no prior auth needed 24.99/ month. Victoza not covered. The other options need prior auth and are more expensive. Abnormal urinalysis 07/05/2023 05/25/20 Assessment & Plan (07/08/2023 12:19 PM CDT): 4+ bacteria on 07/05 UA. Follow up cultures. Continue broad spectrum abx 07/[address] from OR, UOP 630/24 hr. 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 Imaging demonstrates phlegmon in L perineum/buttock with extensive cellulitis extending from labia to anus. Initiated on Vanc / Cefe/ Flagyl / Clinda. OR 07/04 for excisional debridement of labia, perineum, buttocks with SYNDER. Admit to SICU postop. 07/05 - Plan to RTOR on 07/06, NPO at midnight. Plan for 48 hrs of clindamycin following source control. Dressing change later today. 07/06 - OR (Guille) wound debridement, VAC placement; [employer]OMAT[employer]RI[employer]ER AND REAMER D&C, TTOU 07/07 NPO pMN for partial closure/ VAC change, stopped Vanc and Flagyl 07/08 OR (Leslie): perineal wound closure, drain L anterior groin --- AFVSS, pain controlled, rockwell removed, abx transitioned to augmentin to complete course, dispo pending pain control and glucose stability 07/09-07/10 HDS. Perineal incision sutured, approximated. Small amount of bloody drainage from vagina likely from the endometrial biopsy. Yeast noted on labial culture, fluconazole started for 3 days. Augmentin will continue through 07/11 then discontinue. WBC trending down to 11, she is afebrile and no other signs of infection. SHAD drain with 60 ml SS drainage. Will follow up with the ACCS team in 2 weeks to evaluate her incision and possibly remove drain. She was taught drain care and how to empty and record drain amount. Cultures 07/05 Labia tissue (x3 specimens): Group B Strep, mixed orgs, Felecia albicans 07/06 misc micro specimen: negative Abx: Vanc 07/05 - 07/07 Cefe 07/04 - 07/08 Flagyl 07/04 - 07/07 Clinda 07/04 - 07/06 Augmentin 07/08-07/11 Fluconazole 07/09-07/12 Onychomycosis 12/04/2021 2024 Assessment & Plan (12/04/2021 12:00 PM CDT): - uncontrolled - start lamisil daily x 3 mo Weight gain 06/29/2017 2024 Knee pain 01/21/2017 2024
--- OUTSIDE RECORDS SUMMARY | 2024-12-05 20:53 | XMS_ITS | Referral Summary ---
Author Organization [facility] Address [address] [place] [address] Care Team Providers Care Drilling Contractor Name Role Phone Jerel Jackson MD Primary Care Provider + Sallie Etienne MD Unavailable Darcy Hart MD Unavailable [phone] Encounters Date Type Department Care Team Description 12/05/2024 3:00 PM CDT Office Visit [facility] Primary Care [address] [place] [phone] Jerel Jackson MD Annual physical exam (Primary Dx); Type 2 diabetes mellitus with hyperglycemia, without long-term current use of insulin (HCC); JANUSZ (generalized anxiety disorder); Psychophysiological insomnia; Dyslipidemia; Morbid (severe) obesity due to excess calories (HCC); Endometrial carcinoma (HCC); Polyarthralgia; Screening for colon cancer; Fatigue, unspecified type; Need for vaccination 10/04/2024 10:00 AM CHEESE PACKER Office Visit [facility] Advanced Medicine Radiation Oncology [address] [place] [address] [place] [address] Jessica Storey NP Endometrioid adenocarcinoma of uterus (HCC) 09/23/2024 10:20 PM CHEESE PACKER E-Visit [address] [phone] Ara Bernardo, HOOK UP DRIVER Your Medications 09/23/2024 Patient Self-Triage [facility] [address] [place] [address] Myciont, Generic Provider 09/08/2024 Orders Only [facility]ocr[facility]ology Metabolism and Lipid [address] [facility] 5th [place] [address] [place] [address] Jojo Park RMA from Last 3 Months Allergies Active Allergy Reactions Criticality Noted Date Comments Paclitaxel Chest tightness,Flushing (skin) Medium 01/2024 Medications blood-glucose meter kit Use as directed. 1 kit Active OneTouch Verio test strips strip Use as directed up to four times a day. 100 each 1 023 Active lancets misc Use as directed up to 4 times a day. 100 each 1 023 Active blood-glucose meter,continuous (Dexcom G7 Dredge Pipe Operator) misc Use as directed. 1 each 023 Active ascorbic acid (VITAMIN C) 500 mg tablet,chewable Take 1 tablet/chew tab (500 mg total) by mouth 2 (two) times a day 60 tablet/chew tab 023 Active multivit fwootxtp-zjsu-YZ -calcium (THERA-M) 9 mg iron-400 mcg tablet Take 1 tablet by mouth daily 30 tablet 023 Active zinc sulfate (ZINCATE) 50 mg zinc (220 mg) capsule Take 1 capsule (220 mg total) by mouth daily 30 capsule 023 Active magnesium gluconate 200 mg tabletIndication s:hypomagnesemia Take 1 tablet (200 mg total) by mouth every evening Active cyanocobalamin (Vitamin B-12) 1,000 mcg tabletIndication s:Prevention of Vitamin B12 Deficiency Take 1 tablet (1,000 mcg total) by mouth meat passer before breakfast Active FIBER, DEXTRIN, ORALIndications: Supplement Take 2 tablets by mouth meat passer before breakfast Active cholecalciferol (VITAMIN D-3) 5,000 unit tabletIndication s:Prevention of Vitamin D Deficiency 1 tablet (5,000 Units total) meat passer before breakfast Active docusate sodium (COLACE) 50 mg capsuleIndicatio ns:constipation Take 1 capsule (50 mg total) by mouth daily as needed for constipation Active ibuprofen 200 mg tab/capIndicatio ns:Pain Take 2 tablet/capsule (400 mg total) by mouth every 6 (six) hours as needed for pain Active acetaminophen (TYLENOL) 500 mg tablet Take 2 tablets (1,000 mg total) by mouth every 6 (six) hours as needed for pain 30 tablet Active blood-glucose sensor (Dexcom G7 Sensor) deviceIndication s:Type 2 diabetes mellitus with hyperglycemia, without long-term current use of insulin (HCC) Use with Dexcom G7 system to continuously monitor glucose. Change every 10 days. 9 each 3 Active traZODone (DESYREL) 50 mg tabletIndication s:Psychophysiolo gical insomnia Take 1 tablet (50 mg total) by mouth nightly 90 tablet 1 Active atorvastatin (LIPITOR) 40 mg tabletIndication s:Uncontrolled type 2 diabetes mellitus with hyperglycemia (HCC) TAKE 1 TABLET(40 MG) BY MOUTH DAILY 90 tablet 1 Active tirzepatide (MOUNJARO) 12.5 mg/0.5 mL pen injector Inject 12.5 mg under the skin every 7 days 6 mL 3 Active Additional Information Patient not taking.Reported on 12/05/2024 oxyBUTYnin XL (DITROPAN-XL) 5 mg 24 hr tablet Take 1 tablet (5 mg total) by mouth daily 30 tablet 025 2025 Active tirzepatide (MOUNJARO) 10 mg/0.5 mL pen injector injection Inject 0.5 mL (10 mg total) under the skin every 7 days Active hydrOXYzine (ATARAX) 25 mg tabletIndication s:JANUSZ (generalized anxiety disorder) Take 1 tablet (25 mg total) by mouth 3 (three) times a day as needed for anxiety 60 tablet 1 023 2024 Discontinued magnesium oxide (MAG-OX) 400 mg (241.3 mg elemental magnesium) tabletIndication s:hypomagnesemia Take 1 tablet (400 mg total) by mouth daily 30 tablet 11 024 2024 Discontinued hydroCHLOROthiaz bg (HYDRODIURIL) 25 mg tabletIndication s:Hypertension, unspecified type Take 1 tablet (25 mg total) by mouth daily 30 tablet 5 024 2024 Discontinued Active Problems Problem Noted Date Diagnosed Date Hammertoe of right foot 12/05/2024 Endometrial carcinoma 12/28/2023 Annual physical exam 10/30/2023 Endometrial cancer 09/11/2023 JANUSZ (generalized anxiety disorder) 07/20/2023 Assessment & Plan (2024 2:40 PM CDT): - stable - continue hydroxyzine Assessment & Plan (09/08/2023 2:36 PM CHEESE PACKER): - stable - continue current medication - consider counseling Assessment & Plan (07/20/2023 3:43 PM CHEESE PACKER): - uncontrolled - will start hydroxyzine 25mg tid prn - if sx continue will consider adding prozac - pt not interested in counseling at this time - fu in 2 mo or sooner prn Psychophysiological insomnia 07/20/2023 Assessment & Plan (2024 2:39 PM CDT): - stable - continue trazodone Assessment & Plan (09/08/2023 2:36 PM CHEESE PACKER): - stable - continue current medication Assessment & Plan (07/20/2023 3:43 PM CHEESE PACKER): - uncontrolled - start trazodone 50mg qhs, [...] atorvastatin Assessment & Plan (07/20/2023 3:42 PM CHEESE PACKER): - stable - continue current medication Polycystic ovarian syndrome 07/15/2023 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 Assessment & Plan (07/10/2023 7:25 AM CDT): Endometrial thickening up to 3.[address] scan. Also noted right adnexal 4.2 cm cyst. - Consult to gynecology - qualitative beta HCG was positive, quantitative beta HCG <5 07/06 D&C while in OR with [facility]ES 07/08 path reviewed by GENERAL MANAGER ORACLE DATA CLOUD (see below), GENERAL MANAGER ORACLE DATA CLOUD will disclose results, plan to involve GENERAL MANAGER ORACLE DATA CLOUD-ONC, anticipate initiation of oral progestin + IUD vs operative management -- final recs pending -GENERAL MANAGER ORACLE DATA CLOUD: given the diagnosis of endometrioid adenocarcinoma of the uterus, FIGO grade 1. We reviewed this diagnosis and the potentially curable nature as well as potential treatment options of surgical management or hormonal management or a combinations of both. -She will follow up with as an outpatient with the Gynecology team at [facility]. They are recommending Megace 80 mg BID. They will make her appointment and she was given their office number [phone]. Path Diagnosis: Endometrium, biopsy - Endometrioid adenocarcinoma, FIGO grade 1 - Biomarkers pending Uncontrolled type 2 diabetes mellitus with hyper glycemia 12/04/2021 Assessment & Plan (09/08/2023 2:36 PM CHEESE PACKER): - stable - continue current medication Assessment & Plan (07/20/2023 3:41 PM CHEESE PACKER): - continue with mounjaro, lantus and metformin [...] exercise Assessment & Plan (07/20/2023 3:41 PM CHEESE PACKER): - rec healthy diet and regular exercise [...] no fatigue, no bone pain, no muscle hdhgbdnn-vavvz-vwixxe, no mood changes (depression). Risk factors: no [...] CGM No results found for: CPEPTIDE , WKE21BU , IA2AB Lab Results Component Value Date [...] get back to a regular exercise regimen. hospice administrator for Ophthalmology practice Plan: 1) Medications [...] osteoarthritis of right knee 03/26/2017 Migraines 06/26/2016 Resolved Problems Problem Noted Date Diagnosed Date [...] Endo following, BG controlled with insulin regimen, in service educator consulted, plan for teaching and dispo to home in AM 07/09 Endocrinology following, awaiting final discharge recommendations. She does have a meter at home but was not checking her blood glucose daily. Reverse Logistics Analyst will meet with her today. 07/10 DC plan below. staff development educator went over injecting lantus pen and [...] Appt with Dr. Haines on 07/15/23 Outpatient in service educator appt 07/17/23 at 3pm At time [...] - OR (Guille) wound debridement, VAC placement; GENERAL MANAGER ORACLE DATA CLOUD D&C, TTOU 07/07 NPO pMN for partial [...] gain 06/29/2017 2024 Knee pain 01/21/2017 2024 Immunizations Immunization Administration Dates Next Due Influenza, Quadrivalent, Spl it, Preservative Free, Intramuscular 07/07/2023 Influenza, Trivalent, Preser vative Free, Intramuscular 2024 Influenza, Unspecified 06/07/2021(Deferred: Mel ent decision) Pneumococcal Polysaccharide PPV23 07/04/2019 Tdap 12/05/2024,09/07/2013 Social History Tobacco Use Types Packs/Day Years Used Date Smoking Tobacco: Never Smokeless Tobacco: Never Tobacco Cessation:Counseling Given: No AUDIT-C Answer Date Recorded Q1: How often do you have a drink containing alc ohol? Monthly or less 12/05/2024 Q2: How many drinks containi ng alcohol do you have on a typical day when you are drinking? 1 or 2 12/05/2024 Q3: How often do you have si x or more drinks on one occasion? Never 12/05/2024 PHQ-2 Answer Date Recorded PHQ-2 Total Score (If total score is 3 or more points, staff should administer the PHQ-9) 0 12/05/2024 Hunger Vital Sign Answer Date Recorded Within [...] on file Legal Sex Female 8:38 AM CHEESE PACKER Gender Identity Not on file Sexual Orientation Not on file Last Filed Vital Signs Vital Sign Reading Time Taken Comments Blood Pressure 120/70 12/05/2024 2:54 PM CDT Pulse 93 12/05/2024 2:54 PM CDT Temperature 35.6 C (96 F) 12/05/2024 2:54 PM CDT Respiratory Rate 16 12/05/2024 2:54 PM CDT Oxygen Saturation 99% 12/05/2024 2:54 PM CDT Inhaled Oxygen Concentration - - Weight 115.2 kg (254 lb) 12/05/2024 2:54 PM CDT Height 177.8 cm (5' 10 ) 12/05/2024 2:54 PM CDT Body Mass Index 36.45 12/05/2024 2:54 PM CDT Plan of Treatment Upcoming Encounters Date Type Department Care Team (Late st Contact Info) Description 12/06/2024 11:20 AM CDT Office Visit [facility] [address] [facility] Advanced Medicine 13th [place] [address] [place] [address] Darcy Hart MD [phone] [place] [address] Encounter for routine cancer follow-up (Primary Dx); Endometrioid adenocarcinoma of uterus (HCC); Hypertension, unspecified type Medical Devices Explanted Type Area Valve Assembler Device Identifier Shelf Expiration Date Model / Serial / Lot [employer] Xcela Power Port 8fr [id number] - [id number] Implanted:Qty: 1 on 12/07/2023 by Jaskaran Ross MD at [facility] [employer] 07/11/2028 [id number] / / [id number] Procedures Procedure Name Priority Date/Time Associated Diagnosis Comments POCT HEMOGLOBIN A1C Routine 12/05/2024 3 :07 PM CDT Type 2 diabetes mellitus with hyperglycemia, without long-term current use of insulin (HCC) EGFR Routine 04/07/2024 1:44 PM CDT Encounter for antineoplastic chemotherapy Endometrial carcinoma (HCC) DIABETIC EYE EXAM Routine 03/16/2024 2:4 7 PM CDT ALBUMIN CREATININE RATIO, URINE Routine 12/01/2023 12:45 PM CDT Uncontrolled type 2 diabetes mellitus with hyperglycemia (HCC) LIPID PANEL Routine 12/01/2023 12:37 PM CDT Uncontrolled type 2 diabetes mellitus with hyperglycemia (HCC) from Last 3 Months or Most Recently Relevant to Health Maintenance Results * POCT hemoglobin A1c (12/05/2024 3:07 PM CDT) Hemoglobin A1C, POC 4.7 4.0 - 5.6 % Blood 12/05/2024 3:07 PM CDT us Jerel Jackson MD POINT OF CARE TEST ORDER MEME Final Result * eGFR (04/07/2024 1:44 PM CDT) eGFR 67 >=60 mL/min/1. 73 m2 Comment: Interpretive Data Reference Interval Normal >/= 90 mL/min/1.73m2 Mildly decreased* 60 - 89 mL/min/1.73m2 Mildly to moderately decreased 45 - 59 mL/min/1.73m2 Moderately to severely decreased 30 - 44 mL/min/1.73m2 Severely decreased 15 - 29 mL/min/1.73m2 Kidney Failure < 15 mL/min/1.73m2 *Relative to young adult level Estimated glomerular filtration rate is determined by the 2020 CKD-EPI equation recommended by the National Kidney Foundation (A Unifying Approach to GFR Estimation: Recommendations of the NKF-ASK Task Force on Reassessing the Inclusion of Race in Diagnosing Kidney Disease, JASN 2020). The CKD-EPI equation should not be used for patients with unstable renal function and has not been validated in children and those over 70. Current interpretive data was last reviewed 2021. Blood 04/07/2024 1:44 PM CDT 04/07/2024 1:51 PM CDT Darcy Hart MD LAB BLOOD ORDERABLES Fi nal Result Performing Organization Address [facility] Co de Phone Number VANE [address] [facility] [employer] [address] * Diabetic Eye Exam (03/16/2024 2:47 PM CDT) Sandra Mejía MD HEALTH MAINTENANCE Final Result * Albumin Creatinine Ratio, Urine (12/01/2023 12:45 PM CDT) Albumin Ur 39.6 mg/L Comment: Interpretive Data No reference range established. Current interpretive data was last revised 2019. Testing performed by: [address] [address] Creatinine Ur 253.5 mg/dL VANE Comment: Interpretive Data No reference range established. Current interpretive data was last revised 2019. Testing performed by: [address] [address] Albumin Creatinine Ratio, Ur 16 1 - 29 mg/g VANE Comment:Testing performed by : [address] [address] Urine 12/01/2023 12:4 5 PM CDT 12/01/2023 2:07 PM CDT Jerel Jackson MD LAB URINE ORDERABLES Fin al Result Performing Organization Address City/[facility]/ZIP Co de Phone Number [facility] [address] [facility] [place] [address] * (ABNORMAL) Lipid panel (12/01/2023 12:37 PM CDT) Cholesterol 117 30 - 199 mg/dL Comment: Interpretive Data Ages < or = 19 years Acceptable: <170 mg/dL Borderline high: 170-199 mg/dL High: >or= 200 mg/dL Ages > or = 20 years Desirable: <200 mg/dL Borderline high: 200-239 mg/dL High: >or= 240 mg/dL Literature References: 1. Expert Panel on Integrated Guidelines for Cardiovascular Health and Risk Reduction in Children and Adolescents. Pediatrics 2011;128:S213 2. NCEP Expert Panel. Circulation 2004;110:227 Current Interpretive Data was last revised on 2018. Testing performed by: [address] [address] Triglycerides 130 <=149 mg/dL VANE Comment: Interpretive Data Ages < or = 9 years Acceptable: <75 mg/dL Borderline high: 75-99 mg/dL High: >or= 100 mg/dL Ages 10 to 20 years Acceptable: <90 mg/dL Borderline high: 90-129 mg/dL High: >or= 130 mg/dL Ages > or = 20 years Desirable: <150 mg/dL Borderline high: 150-199 mg/dL High: 200-499 mg/dL Very high: >or= 499 mg/dL Literature References: 1. Expert Panel on Integrated Guidelines for Cardiovascular Health and Risk Reduction in Children and Adolescents. Pediatrics 2011;128:S213 2. NCEP Expert Panel. Circulation 2004;110:227 Current Interpretive Data was last revised on 2018. Testing performed by: [address] [address] HDL 36(L) >=40 mg/dL VANE Comment: Interpretive Data Ages < or = 19 years Acceptable: >45 mg/dL Borderline low: 40-45 mg/dL Low: <40 mg/dL Ages > or = 20 years Desirable: >or= 60 mg/dL Low: <40 mg/dL Literature References: 1. Expert Panel on Integrated Guidelines for Cardiovascular Health and Risk Reduction in Children and Adolescents. Pediatrics 2011;128:S213 2. NCEP Expert Panel. Circulation 2004;110:227 Current Interpretive Data was last revised on 2018. Testing performed by: [address] [address] LDL, calculated 55 <=129 mg/dL VANE Comment: Interpretive Data Ages < or = 19 years Acceptable: <110 mg/dL Borderline high: 110-129 mg/dL High: >or= 130 mg/dL Ages > or = 20 years Optimal: <100 mg/dL Near optimal: 100-129 mg/dL Borderline high: 130-159 mg/dL High: >160 mg/dL Literature References: 1. Expert Panel on Integrated Guidelines for Cardiovascular Health and Risk Reduction in Children and Adolescents. Pediatrics 2011;128:S213 2. NCEP Expert Panel. Circulation 2004;110:227 Current Interpretive Data was last revised on 2018. Testing performed by: [address] [address] Non-HDL Cholesterol 81 mg/dL VANE Comment: Interpretive Data Ages < or = 19 years Acceptable: <120 mg/dL Borderline high: 120-144 mg/dL High: >145 mg/dL Ages > or = 20 years When triglycerides are >200 mg/dL, Non-HDL cholesterol is a secondary target of therapy with treatment goals that are 30 mg/dL greater than the LDL cholesterol target. Literature References: 1. Expert Panel on Integrated Guidelines for Cardiovascular Health and Risk Reduction in Children and Adolescents. Pediatrics 2011;128:S213 2. NCEP Expert Panel. Circulation 2004;110:227 Current Interpretive Data was last revised on 2018. Testing performed by: [address] [address] Chol/HDL ratio 3 VANE Comment:Testing performed by : [address] [address] Blood 12/01/2023 12:3 7 PM CDT 12/01/2023 2:18 PM CDT us Jerel Jackson MD LAB BLOOD ORDERABLES Fin al Result VANE [address] [facility] Department [place] [address] from Last 3 Months or Most Recently Relevant to Health Maintenance Insurance ANTHEM ACCESS ANTHEM ACCESS ANTHEM ACCESS Advance Directives For more information, please contact: [phone] * Full Code (Latest Code Status on File) Date Activated Date Inactivated Comments 12/28/2023 3:43 AM 12/31/2023 9:05 PM * Full Code Date Activated Date Inactivated Comments 12/07/2023 12:28 PM 12/08/2023 5:11 AM * Full Code Date Activated Date Inactivated Comments 07/04/2023 8:33 PM 07/10/2023 4:37 PM Care Teams Drilling Contractor Relationship Specialty Start Date End Date Jerel Jackson MD [address] [place] [id number] PCP - General Family Medicine 12/04/21 Sallie Etienne MD [address] [place] [address] Radiation Oncologist Radiation Oncology 04/15/24 Darcy Hart MD [address] OBGYN GYNECOLOGIC ONCOLOGY, [address] [address] Surgeon Gynecologic Oncology 04/18/24
--- OUTSIDE RECORDS SUMMARY | 2024-12-05 20:53 | XMS_ITS | Clinical Summary ---
Author Organization [facility] Address [address] [place] [address] Care Team Providers Care Multimedia Services Coordinator Name Role Phone Jerel Jackson MD Primary Care Provider + Sallie Etienne MD Unavailable Darcy Hart MD Unavailable [phone] Allergies Active Allergy Reactions Criticality Noted Date Comments Paclitaxel Chest tightness,Flushing (skin) Medium 01/2024 Medications blood-glucose meter kit Use as directed. 1 kit 023 Active OneTouch Verio test strips strip Use as directed up to four times a day. 100 each 1 023 Active lancets misc Use as directed up to 4 times a day. 100 each 1 023 Active blood-glucose meter,continuous ([employer] G7 Customer Success Director) misc Use as directed. 1 each 023 Active ascorbic acid (VITAMIN C) 500 mg tablet,chewable Take 1 tablet/chew tab (500 mg total) by mouth 2 (two) times a day 60 tablet/chew tab 023 Active multivit cqrsmgim-wigz-KJ -calcium (THERA-M) 9 mg iron-400 mcg tablet [...] 1 tablet (1,000 mcg total) by mouth administrative volunteer before breakfast Active FIBER, DEXTRIN, ORALIndications: Supplement Take 2 tablets by mouth administrative volunteer before breakfast Active cholecalciferol (VITAMIN D-3) 5,000 unit tabletIndication s:Prevention of Vitamin D Deficiency 1 tablet (5,000 Units total) administrative volunteer before breakfast Active docusate sodium (COLACE) 50 [...] hours as needed for pain 30 tablet 024 Active blood-glucose sensor (Dexcom G7 Sensor) deviceIndication s:Type 2 diabetes mellitus with hyperglycemia, without long-term current use of insulin (HCC) Use with Dexcom G7 system to continuously monitor glucose. Change every 10 days. 9 each 3 024 Active traZODone (DESYREL) 50 mg tabletIndication s:Psychophysiolo gical insomnia Take 1 tablet (50 mg total) by mouth nightly 90 tablet 1 024 Active atorvastatin (LIPITOR) 40 mg tabletIndication s:Uncontrolled type 2 diabetes mellitus with hyperglycemia (HCC) TAKE 1 TABLET(40 MG) BY MOUTH DAILY 90 tablet 1 024 Active tirzepatide (MOUNJARO) 12.5 mg/0.5 mL pen injector Inject 12.5 mg under the skin every 7 days 6 mL 3 Active Additional Information Patient not taking.Reported on 12/05/2024 oxyBUTYnin XL (DITROPAN-XL) 5 mg 24 hr tablet Take 1 tablet (5 mg total) by mouth daily 30 tablet 11 025 2025 Active tirzepatide (MOUNJARO) 10 mg/0.5 [...] 30 tablet 11 024 2024 Discontinued hydroCHLOROthiaz gb (HYDRODIURIL) 25 mg tabletIndication s:Hypertension, unspecified type [...] hydroxyzine Assessment & Plan (09/08/2023 2:36 PM TEXTILE SCIENCE TECHNICIAN): - stable - continue current medication - consider counseling Assessment & Plan (07/20/2023 3:43 PM TEXTILE SCIENCE TECHNICIAN): - uncontrolled - will start hydroxyzine 25mg tid prn - if sx continue will consider adding prozac - pt not interested in counseling at this time - fu in 2 mo or sooner prn Psychophysiological insomnia 07/20/2023 Assessment & Plan (2024 2:39 PM CDT): - stable - continue trazodone Assessment & Plan (09/08/2023 2:36 PM TEXTILE SCIENCE TECHNICIAN): - stable - continue current medication Assessment & Plan (07/20/2023 3:43 PM TEXTILE SCIENCE TECHNICIAN): - uncontrolled - start trazodone 50mg qhs, [...] atorvastatin Assessment & Plan (07/20/2023 3:42 PM TEXTILE SCIENCE TECHNICIAN): - stable - continue current medication Polycystic ovarian syndrome 07/15/2023 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 Assessment & Plan (07/10/2023 7:25 AM CDT): Endometrial thickening up to 3.[address] scan. Also noted right adnexal 4.2 cm cyst. - Consult to gynecology - qualitative beta HCG was positive, quantitative beta HCG <5 07/06 D&C while in OR with ACES 07/08 path reviewed by TRACK INSPECTING SUPERVISOR (see below), TRACK INSPECTING SUPERVISOR will disclose results, plan to involve TRACK INSPECTING SUPERVISOR-ONC, anticipate initiation of oral progestin + IUD vs operative management -- final recs pending -TRACK INSPECTING SUPERVISOR: given the diagnosis of endometrioid adenocarcinoma of the uterus, FIGO grade 1. We reviewed this diagnosis and the potentially curable nature as well as potential treatment options of surgical management or hormonal management or a combinations of both. -She will follow up with as an outpatient with the Gynecology team at [facility]. They are recommending Megace 80 mg BID. They will make her appointment and she was given their office number [phone]. Path Diagnosis: Endometrium, biopsy - Endometrioid adenocarcinoma, FIGO grade 1 - Biomarkers pending Uncontrolled type 2 diabetes mellitus with hyper glycemia 12/04/2021 Assessment & Plan (09/08/2023 2:36 PM TEXTILE SCIENCE TECHNICIAN): - stable - continue current medication Assessment & Plan (07/20/2023 3:41 PM TEXTILE SCIENCE TECHNICIAN): - continue with mounjaro, lantus and metformin [...] exercise Assessment & Plan (07/20/2023 3:41 PM TEXTILE SCIENCE TECHNICIAN): - rec healthy diet and regular exercise [...] no fatigue, no bone pain, no muscle gpdpazrw-axjea-ahyryh, no mood changes (depression). Risk factors: no [...] CGM No results found for: CPEPTIDE , [id number] , IA2AB Lab Results Component Value Date [...] get back to a regular exercise regimen. unix systems administrator for Ophthalmology practice Plan: 1) Medications [...] Endo following, BG controlled with insulin regimen, museum educator consulted, plan for teaching and dispo to home in AM 07/09 Endocrinology following, awaiting final discharge recommendations. She does have a meter at home but was not checking her blood glucose daily. Pharmacy Graduate Intern will meet with her today. 07/10 DC plan below. community nutrition educator went over injecting lantus pen and [...] Appt with Dr. Haines on 07/15/23 Outpatient museum educator appt 07/17/23 at 3pm At time [...] Dressing change later today. 07/06 - OR (Han) wound debridement, VAC placement; TRACK INSPECTING SUPERVISOR D&C, TTOU 07/07 NPO pMN for partial [...] gain 06/29/2017 2024 Knee pain 01/21/2017 2024 Encounters Date Type Department Care Team Description 12/05/2024 3:00 PM CDT Office Visit [facility] Primary Care [address] [place] [phone] Jerel Jackson MD Annual physical exam (Primary Dx); Type 2 diabetes mellitus with hyperglycemia, without long-term current use of insulin (HCC); JANUSZ (generalized anxiety disorder); Psychophysiological insomnia; Dyslipidemia; Morbid (severe) obesity due to excess calories (HCC); Endometrial carcinoma (HCC); Polyarthralgia; Screening for colon cancer; Fatigue, unspecified type; Need for vaccination 10/04/2024 10:00 AM TEXTILE SCIENCE TECHNICIAN Office Visit [facility] Radiation Oncology [address] [place] [address] Jessica Storey, MARIBEL Endometrioid adenocarcinoma of uterus (HCC) 09/23/2024 10:20 PM TEXTILE SCIENCE TECHNICIAN E-Visit [facility] Virtual Care [address] [place] [address] Ara Bernardo, MARIBEL Your Medications 09/23/2024 Patient Self-Triage [facility] [address] [place] [address] Mychart, Generic Provider 09/08/2024 Orders Only [facility] Endocrinology Metabolism and Lipid [address] [place] [address] [place] [address] Jojo Park RMA from Last 3 Months Immunizations Immunization Administration Dates Next Due Influenza, Quadrivalent, Spl it, Preservative Free, Intramuscular 07/07/2023 Influenza, Trivalent, Preser vative Free, Intramuscular 2024 Influenza, Unspecified 06/07/2021(Deferred: Mel ent decision) Pneumococcal Polysaccharide PPV23 07/04/2019 Tdap 12/05/2024,09/07/2013 Surgical History Surgery Date Site/Laterality Comments CHOLECYSTECTOMY ELBOW SURGERY Right X 2 KNEE SURGERY 09/07/2012 - 09/06/2013 Right scope PORT PLACEMENT CHEST >5 YEARS 12/07/2023 N/A PORT REMOVAL 12/29/2023 N/A ABCESS DRAINAGE PELVIC INCISION & DRAINAGE FOR ABCESS HYSTERECTOMY W/ BILATERAL SALPINGOOPHORECTOMY HYSTERECTOMY 10/15/23 Medical History Medical History Date Comments Diabetes mellitus (HCC) Headache PCOS (polycystic ovarian syndrome) Insulin resistance Arthritis PONV (postoperative nausea and vomiting) Reports relief with IV meds MSSA bacteremia 12/31/2023 Cancer (HCC) Jul 30 Migraines Family History Medical History Relation Name Comments Diabetes Father Valdemar Family history of diabetes mellitus - (Added by TW Conv) Heart attack Father Valdemar Heart disease Father Valdemar Family history of cardiac disorder - (Added by TW Conv) Arthritis Mother Danyelle bello Family history of arthritis - (Added by TW Conv) Breast cancer Other 1 Family history of Cancer, breast; Lung cancer Other 2 Family history of Cancer, lung; Diabetes Other 3 Family history of Diabetes mellitus; Hypertension Other 4 Family history of Hypertension; Breast cancer Paternal Grandmother Anesthesia problems Neg Hx Malig Hyperthermia Neg Hx Pseudochol deficiency Neg Hx Relation Name Status Comments Father Valdemar Alive Mother Danyelle bello Alive Other 1 Other 2 Other 3 Other 4 Paternal Grandmother Social History Tobacco Use Types Packs/Day Years [...] on file Legal Sex Female 8:38 AM TEXTILE SCIENCE TECHNICIAN Gender Identity Not on file Sexual Orientation Not on file Obstetrics History Last Filed Vital Signs Vital Sign Reading [...] Description 12/06/2024 11:20 AM CDT Office Visit [facility]etrics [facility]necology [address] [place] [address] [place] [address] Darcy Hart MD [phone] [place] [address] Encounter for routine cancer follow-up (Primary Dx); Endometrioid adenocarcinoma of uterus (HCC); Hypertension, unspecified type Health Maintenance Due Date Last Done Comments Breast Cancer Screening-Mammogram 1980 Colon Cancer Screening-Colonoscopy 1980 Hepatitis C Screening 1980 Hepatitis B Screening 1997 Zoster Vaccine (1 of 2) 1998 Pneumococcal vaccine <65 (2 of 2 - PCV) 07/04/2020 07/04/2019 Covid-19 Vaccine (3 - Moderna risk series) 11/21/2020 10/24/2020, 09/26/2020 Foot Exam 12/04/2022 12/04/2021 Albumin Creatinine Ratio, Urine 11/30/2024 12/01/2023 Lipid Panel 11/30/2024 12/01/2023, 07/04/2019 eGFR 04/07/2025 04/07/2024, 03/07, 03/04/2024, Additional history exists Hemoglobin A1C 06/06/2025 12/05/2024, 05/09, 12/28/2023, Additional history exists Depression Screening 12/05/2025 12/05/2024, 08/18/2024, 07/20/2023, Additional history exists Regular Well Visit/Exam 18-64 12/05/2025 12/05/2024 Dilated Eye Exam 03/16/2026 03/16/2024 DTaP/Tdap/Td Vaccine (3 - Td or Tdap) 12/05/2034 12/05/2024, 09/07/2013 Influenza Vaccine Completed 2024, 07/07/2023 HPV Vaccines Aged Out No longer eligi ble based on patient's age to complete this topic Medical Devices Explanted Type Area Pot Room Supervisor Device Identifier Shelf Expiration Date Model / Serial / Lot [employer] Xcela Power Port 8fr [id number] - [id number] Implanted:Qty: 1 on 12/07/2023 by Jaskaran Ross MD at [facility] [employer] 07/11/2028 [id number] / / [id number] Procedures Procedure Name Priority Date/Time Associated Diagnosis [...] POCT hemoglobin A1c (12/05/2024 3:07 PM CDT) Pathologist [facility] Hemoglobin A1C, POC 4.7 4.0 - 5.6 % Blood 12/05/2024 3:07 PM CDT us Jerel Jackson MD POINT OF CARE TEST ORDER MEME Final Result * eGFR (04/07/2024 1:44 PM CDT) Pathologist [facility] eGFR 67 >=60 mL/min/1. 73 m2 Comment: [...] MD LAB BLOOD ORDERABLES Fi nal Result [facility] [address] [facility] Department of Laboratories [place], [place] [id number] * Diabetic Eye Exam (03/16/2024 2:47 PM CDT) [facility] Heart Provider HEALTH MAINTENANCE Final Result * Albumin Creatinine Ratio, Urine (12/01/2023 12:45 PM CDT) Albumin Ur 39.6 mg/L Comment: Interpretive Data No reference range established. Current interpretive data was last revised 2019. Testing performed by: [address] [address] Creatinine Ur 253.5 mg/dL [facility] Comment: Interpretive Data No reference range established. Current interpretive data was last revised 2019. Testing performed by: [address] [address] Albumin Creatinine Ratio, Ur 16 1 - 29 mg/g [facility] Comment:Testing performed by : [address] [address] Urine 12/01/2023 12:4 5 PM CDT 12/01/2023 2:07 PM CDT us Jerel Jackson MD LAB URINE ORDERABLES Fin al Result [facility] [address] [facility] Department [place] [address] * (ABNORMAL) Lipid panel (12/01/2023 12:37 PM [...] last revised on 2018. Testing performed by: [address] [address] Triglycerides 130 <=149 mg/dL [facility]ANE Comment: Interpretive [...] last revised on 2018. Testing performed by: [address] [address] HDL 36(L) >=40 mg/dL [facility] Comment: Interpretive [...] last revised on 2018. Testing performed by: [address] [address] LDL, calculated 55 <=129 mg/dL [facility] Comment: [...] last revised on 2018. Testing performed by: [address] [address] Non-HDL Cholesterol 81 mg/dL [facility] Comment: Interpretive [...] last revised on 2018. Testing performed by: [address] [address] Chol/HDL ratio 3 [facility] Comment:Testing performed by : [address] [address] Blood 12/01/2023 12:3 7 PM CDT 12/01/2023 2:18 PM CDT Jerel Jackson MD LAB BLOOD ORDERABLES Fin al Result [facility] [address] [facility] Department [place] [address] from Last 3 Months or Most Recently Relevant to Health Maintenance Insurance ANTHEM ACCESS ANTHEM ACCESS ANTHEM ACCESS Advance Directives For more information, please contact: [phone] * Full Code (Latest Code Status on File) Date Activated Date Inactivated Comments 12/28/2023 3:43 AM 12/31/2023 9:05 PM * Full Code Date Activated Date Inactivated Comments 12/07/2023 12:28 PM 12/08/2023 5:11 AM * Full Code Date Activated Date Inactivated Comments 07/04/2023 8:33 PM 07/10/2023 4:37 PM Care Teams Multimedia Services Coordinator Relationship Specialty Start Date End Date Jerel Jackson MD [address] [place] [id number] PCP - General Family Medicine 12/04/21 Sallie Etienne MD [address] [place] [address] Radiation Oncologist Radiation Oncology 04/15/24 Darcy Hart MD [address] DIV OBGYN GYNECOLOGIC ONCOLOGY, [address] [address] Surgeon Gynecologic Oncology 04/18/24
--- OUTSIDE RECORDS SUMMARY | 2024-12-05 20:53 | XMS_ITS ---
Author Organization 1 OF Jonatan huffman [facility] Address [address] [place] [address] [place] [address] Care Team Providers Care Data Analytics Analyst Name Role Phone Jerel Jackson Primary Care Provider Jarred Donnelly Unavailable [phone] REASON FOR VISIT T5 nail lifted and hurts Medications Medication SIG (Take, Route, Frequency, Duration) Notes Start Date End Date Status Cipro 500 MG 1 tablet Orally Twice a day for 7 days 03/26/2023 Not-Taking Doxycycline Hyclate 100 MG 1 tablet Oral ly Twice a day for 7 days 03/26/2023 Not-Taking Doxycycline Monohydrate 100 MG 1 tablet Orally every 12 hrs for 7 days 08/18/2022 Not-Taking metroNIDAZOLE 500 MG 1 tablet Orally every 8 hrs for 7 days 04/02/2023 Not-Taking metroNIDAZOLE 500 MG 1 tablet Orally every 8 hrs for 10 day(s) 04/24/2023 Not-Taking Zofran Active Mounjaro 10 MG/0.5ML as directed Subcutaneous Active traZODone HCl 50 MG 1 tablet at bedtime as needed Orally Once a day Active Doxycycline Hyclate 100 MG 1 tablet Oral ly Twice a day for 7 days 01/29/2024 Not-Taking metFORMIN HCl Active Gabapentin Active hydroCHLOROthiazide Active Tirzepatide Active dexAMETHasone 20 MG as directed Orally Active Prochlorperazine Act elizabeth Doxycycline Hyclate 100 MG 1 tablet Oral ly Twice a day for 7 days 03/17/2024 Active LORazepam 0.5 MG 1 tablet at bedtime as needed Orally Once a day Active Atorvastatin Calcium 40 MG 1 tablet Oral ly Once a day Active Vital Signs Height 71 in 03/17/2024 Weight 245 lbs 03/17/2024 BMI 34.17 kg/m2 03/17/2024 Encounters Encounter Location Date Provider Diagnosis 3 COL Damon Lucio DPM [address] [place] [address] 03/17/2024 Jarred Taveras Ingrowing nail L60.0 ; Toe pain, right M79.674 and Paronychia of great toe L03.039 Assessments Encounter Date Diagnosis (ICD Code) Assessment Notes Treatment Notes Treatment Clinical Notes Section Notes 03/17/2024 Ingrowing nail (ICD-10 - L60.0) Discussed ingrown toenail condition and explained in detail conservative and surgical options of care including debridement / slant back procedure vs nail avulsion vs matrixectomy. Discussed pros and cons of each procedure including temporary relief vs more permanent relief with matrixectomy procedure but longer healing time. Patient elected to proceed with avulsion procedure of the affected toe(s). 03/17/2024 Toe pain, right (ICD-10 - M79.674) 03/17/2024 Paronychia of great toe (ICD-10 - L03.039) Evaluation today included a review of medical history, review of systems, discussion of exam findings, and review of diagnoses and treatment options. 03/17/2024 Other Plan Of Treatment Medication Medication Name Sig Start Date Stop Date Notes Doxycycline Hyclate 100 MG 1 tablet Oral ly Twice a day for 7 days 03/17/2024 Treatment Notes Assessment Notes Ingrowing nail Discussed [...] with avulsion procedure of the affected toe(s). Paronychia of great toe Evaluation today included a review of medical history, review of systems, discussion of exam findings, and review of diagnoses and treatment options. Next Appt Details Follow Up: 9 weeks, Reason: Procedure Notes * Category Sub-Category Detail Notes NAIL PROCEDURES: Nail avulsion (35017): Discusse d procedure and associated recovery period as well as potential risks and complications including, but not limited to recurrence of ingrown toenail, infection, worsening of condition, loss of entire toenail, loss of digit. Advised potential need for resection hypertrophic periungual tissue to help prevent recurrence of the condition. No guarantees given. Patient agreed to proceed with procedure consisting of:,total nail avulsion of: T5. Consent form reviewed and signed by patient / guardian. Local anesthesia obtained with 4cc , 50/50 mixture, 0.25% marcaine plain, 1% lidocaine plain., Aseptic prep of the toe(s) performed with [...] with aseptic technique. (A4550) Progress Notes * Jessica VIDALESDOB: [birth year] (43 yo F)Acc No.[id number]:03/17/2024 Progress Notes Patient: Nevaeh RICOica Provider: Yuliana Taveras DPM :1980 A ge:43 Y S ex:Female Date:03/17/2024 Address:[address] [place], [place] [id number] Pcp:Jerel Jackson Subjective: * Chief Complaints: * T 5 nail lifted and hurts * HPI: Yesenia Castellano assisting with visit:: HPI/Rooming: William jordan reason for visit:: 43 y/o Female RTO for Diabetic Foot Care. Today patient reports no acute issues with nails or calluses. * Medical History: * Medications: T akingAtorvastatin Calcium 40 MG Tablet 1 tablet Orally Once a day LORazepam 0.5 MG Tablet 1 tablet at bedtime as needed Orally Once a day Prochlorperazine Gabapentin Tirzepatide hydroCHLOROthiazide dexAMETHasone 20 MG Tablet as directed Orally traZODone HCl 50 MG Tablet 1 tablet at bedtime as needed Orally Once a day Mounjaro 10 MG/0.5ML Solution Pen-injector as directed Subcutaneous Zofran metFORMIN HCl Taking Atorvastatin Calcium 40 MG Tablet 1 tablet Orally Once a day Taking LORazepam 0.5 MG Tablet 1 tablet at bedtime as needed Orally Once a day Taking Prochlorperazine Taking Gabapentin Taking Tirzepatide Taking hydroCHLOROthiazide Taking dexAMETHasone 20 MG Tablet as directed Orally Taking traZODone HCl 50 MG Tablet 1 tablet at bedtime as needed Orally Once a day Taking Mounjaro 10 MG/0.5ML Solution Pen-injector as directed Subcutaneous Taking Zofran Taking metFORMIN HCl Not- Taking/PRNDoxycycline Hyclate 100 MG Tablet 1 tablet Orally Twice a day metroNIDAZOLE 500 MG Tablet 1 tablet Orally every 8 hrs metroNIDAZOLE 500 MG Tablet 1 tablet Orally every 8 hrs Doxycycline Monohydrate 100 MG Tablet 1 tablet Orally every 12 hrs Doxycycline Hyclate 100 MG Tablet 1 tablet Orally Twice a day Cipro 500 MG Tablet 1 tablet Orally Twice a day Medication List reviewed and reconciled with the patientNot- Taking/PRN Doxycycline Hyclate 100 MG Tablet 1 [...] Tablet 1 tablet Orally Twice a day Medication List reviewed and reconciled with the patient Objective: * Vitals: W t:245lbs, Wt-k.13 kg, Ht:71in, BMI:34.17Index. * Examination: G eneral Examination: Constitutional / Appearance: N o acute distress , Well nourished, Appropriate personal hygiene. Mental status: C ooperative, Oriented to person, place and time, Mood and affect: normal, Judgement and intellect: normal with appropriate response to questions. Shoes today: X XXX. L ower Extremity DERM: : Ingrown nail / onychia noted to: N ail plate(s) of T5 nail plate, with periungual erythema and edema, incurvation of nail plate, pain with palpation, drainage, No cellulitis.. Assessment: * Assessment: 1. I ngrowing nail - L60.0 (Primary) 2 . T oe pain, right - M79.674 3 . P aronychia of great toe - L03.039 Plan: * Treatment: 2. P aronychia of great toe Start Doxycycline Hyclate Tablet, 100 MG, 1 tablet, Orally, Twice a day, 7 days, 14 Tablet, Refills 0. Notes: Evaluation today included a review of medical history, review of systems, discussion of exam findings, and review of diagnoses and treatment options. * Procedures: N AIL PROCEDURES:: Nail avulsion (03847): D iscussed procedure and associated recovery period as well as potential risks and complications including, but not limited to recurrence of ingrown toenail, infection, worsening of condition, loss of entire toenail, loss of digit. Advised potential need for resection hypertrophic periungual tissue to help prevent recurrence of the condition. No guarantees given. Patient agreed to proceed with procedure consisting of:,total nail avulsion of: T5. Consent form reviewed and signed by patient / guardian. Local anesthesia obtained with 4cc , 50/50 mixture, 0.25% marcaine plain, 1% lidocaine plain., Aseptic prep of the toe(s) performed with [...] 1 1730 REMOVAL OF NAIL PLATE, Modifiers: T5 A4550 STERILE TRAY * Follow Up: 9 weeks * Images: * Sign off status: Completed true * Provider: Yuliana Taveras DPM Date: 0 03/17/2024 Generated for Harvinder núñez/Shauna/Gavinitting on: 0 12/05/2024 02:46 PM CDT History and Physical Notes * HPI (History of Present Illness) Category Sub-Category Detail Notes Category Not es Primary reason for visit: 43 y/o Female RTO for Diabetic Foot Care. Today patient reports no acute issues with nails or calluses. MA assisting with visit: HPI/Rooming: Marilyn Examination Category Sub-Category Detail Notes Category Not es General Examination Mental status: Cooperative, Oriented to person, place and time, Mood and affect: normal, Judgement and intellect: normal with appropriate response to questions Shoes today: XXXX Exam unchanged from prior visit: Constitutional / Appearance: No acute di stress , Well nourished, Appropriate personal hygiene Lower Extremity DERM: Ingrown nail / kacey ildefonso noted to: Nail plate(s) of T5 nail plate, with periungual erythema and edema, incurvation of nail plate, pain with palpation, drainage, No cellulitis.
--- OUTSIDE RECORDS SUMMARY | 2024-12-05 20:53 | XMS_ITS | Encounter Summary ---
Author Organization [facility] Address [address] [place] [id number] Care Team Providers Care Christmas Bell Ringer Name Role Phone Mildred Price CORDWOOD CUTTER Primary Care Provider Unavaila ble Encounter Details Date Type Department Care Team (Latest Contact Info) Description 04/19/2018 Abstract [facility] , Ron Long MD Social History Tobacco Use Types Packs/Day Years Used Date Smoking Tobacco: Never Assessed Comments Unknown Sex and Gender Information Value Date Recorded Sex Assigned at Not on file Legal Sex Female 6:57 PM CDT Gender Identity Not on file Sexual Orientation Not on file documented as of this encounter Plan of Treatment Not on file documented as of this encounter Visit Diagnoses Not on filedocumented in this encounter Care Teams Christmas Bell Ringer Relationship Specialty Start Date End Date Mildred Price NP PCP - General NURSE PRACTITIONER 12/21/18 documented as of this encounter
--- OUTSIDE RECORDS SUMMARY | 2024-12-05 20:53 | XMS_ITS | Patient Health Record ---
Author Organization 1 Jonatan huffman [facility] Address [address] [place] [address] [place] [address] Care Team Providers Care Mold Filler Plastic Dolls Name Role Phone Jerel Jackson Primary Care Provider Jarred Donnelly Unavailable [phone] Allergies No Known Allergies Reason For Referral No Information Medications Medication SIG (Take, Route, Frequency, Duration) Notes Start Date End Date Status Mounjaro 10 MG/0.5ML as directed Subcutaneous Active traZODone HCl 50 MG 1 tablet at bedtime as needed Orally Once a day Active Doxycycline Monohydrate 100 MG 1 tablet Orally every 12 hrs for 7 days 08/18/2022 Not-Taking metroNIDAZOLE 500 MG 1 tablet Orally every 8 hrs for 7 days 04/02/2023 Not-Taking Tirzepatide Active Cipro 500 MG 1 tablet Orally Twice a day for 7 days 03/26/2023 Not-Taking Atorvastatin Calcium 40 MG 1 tablet Oral ly Once a day Active Doxycycline Hyclate 100 MG 1 tablet Oral ly Twice a day for 7 days 03/26/2023 Not-Taking Doxycycline Hyclate 100 MG 1 tablet Oral ly Twice a day for 7 days 03/17/2024 Not-Taking hydroCHLOROthiazide Not-Taking metroNIDAZOLE 500 MG 1 tablet Orally every 8 hrs for 10 day(s) 04/24/2023 Not-Taking Doxycycline Hyclate 100 MG 1 tablet Oral ly Twice a day for 7 days 01/29/2024 Not-Taking Cefadroxil 500 MG 1 capsule Orally every 12 hrs for 7 days 10/17/2024 Active Problems Problem Type SNOMED Code ICD Code Onset Dates Problem Status W/U Status Risk Notes Problem [id number] Non-pressure chronic ulcer of other part of right foot with fat layer exposed (L97.512) Active confirmed Problem 49320485622304377 Non-pressure chronic ulcer of other part of left foot limited to breakdown of skin (L97.521) Active confirmed Problem 85316399033741282 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) Active confirmed Problem 080139922370147 Type 2 diabetes mellitus with foot ulcer (E11.621) Active confirmed Problem 82369517 Type 2 diabetes mellitus with other diabetic neurological complication (E11.49) Active confirmed Problem 405300115 Hammertoe of right foot (M20.41) Active confirmed Problem 024403746 Hammertoe of left foot (M20.42) Active confirmed Problem 160375316 Osteomyelitis of toe of left foot (M86.9) Active confirmed Problem 80869719 Type 2 diabetes mellitus with diabetic polyneuropathy, unspecified whether terminal press operator insulin use (E11.42) Active confirmed Vital Signs Height 71 in 11/01/2024 Weight 245 lbs 11/01/2024 BMI 34.17 kg/m2 11/01/2024 Encounters Encounter Location Date Provider Diagnosis 1 OF Jonatan Lucio DPM [facility] [address] [address] 01/29/2024 Jarred Darcy Ingrowing nail L60.0 ; Toe pain, left M79.675 and Paronychia, toe, left L03.032 3 COL Damon Lucio DPM [facility] [address] [address] 03/17/2024 Jarred Craemrsay Ingrowing nail L60.0 ; Toe pain, right M79.674 and Paronychia of great toe L03.039 3 COL Damon Lucio DPM [facility] [address] [address] 10/17/2024 Jarred Taveras Paronychia of toe of right foot L03.031 ; Ingrowing nail L60.0 ; Toe pain, right M79.674 ; Non-pressure chronic ulcer of other part of right foot with fat layer exposed L97.512 and Type 2 diabetes mellitus with foot ulcer E11.621 1 OF Jonatan BURROUGHS [address] [place] [address] 11/01/2024 Jarred Taveras Ingrowing nail L60.0 ; Paronychia of toe of right foot L03.031 ; Non-pressure chronic ulcer of other part of right foot with fat layer exposed L97.512 ; Type 2 diabetes mellitus with foot ulcer E11.621 and Hammertoe of right foot M20.41 1 OF Jonatan Lucio [facility] [address] [place] [address] 01/28/2024 Jarred Taveras 1 OF Jonatan Lucio [facility] [address] [place] [address] 03/17/2024 Jarred Taveras Assessments Encounter Date Diagnosis (ICD Code) Assessment Notes Treatment Notes Treatment Clinical Notes Section Notes 01/29/2024 Ingrowing nail (ICD-10 - L60.0) Discussed ingrown toenail condition and explained in detail conservative and surgical options of care including debridement / slant back procedure vs nail avulsion vs matrixectomy. Discussed pros and cons of each procedure including temporary relief vs more permanent relief with matrixectomy procedure but longer healing time. Patient elected to proceed with avulsion procedure of the affected toe(s). 01/29/2024 Toe pain, left (ICD-10 - M79.675) 03/17/2024 Ingrowing nail (ICD-10 - L60.0) Discussed [...] 03/17/2024 Toe pain, right (ICD-10 - M79.674) 10/17/2024 Ingrowing nail (ICD-10 - L60.0) Discussed [...] avulsion procedure of the affected toe(s). 10/17/2024 Paronychia of toe of right foot (ICD-10 - L03.031) 11/01/2024 Ingrowing nail (ICD-10 - L60.0) 11/01/2024 Non-pressure chronic ulcer of other part of right foot with fat layer exposed (ICD-10 - L97.512) 03/17/2024 Paronychia of great toe (ICD-10 - L03.039) Evaluation today included a review of medical history, review of systems, discussion of exam findings, and review of diagnoses and treatment options. 10/17/2024 Toe pain, right (ICD-10 - M79.674) 11/01/2024 Paronychia of toe of right foot (ICD-10 - L03.031) 01/29/2024 Paronychia, toe, left (ICD-10 - L03.032) Evaluation today included a review of medical history, review of systems, discussion of exam findings, and review of diagnoses and treatment options. 10/17/2024 Non-pressure chronic ulcer of other part of right foot with fat layer exposed (ICD-10 - L97.512) 11/01/2024 Type 2 diabetes mellitus with foot ulcer (ICD-10 - E11.621) 10/17/2024 Type 2 diabetes mellitus with foot ulcer (ICD-10 - E11.621) 11/01/2024 Hammertoe of right foot (ICD-10 - M20.41) 03/17/2024 Other 11/01/2024 Other I did examine a nd evaluate the patient today. I was pleased to learn that her ulceration was resolved and have recommended that we go ahead and at some point in time perform a flexor tenotomy to this digit in the near future so as to decrease the chance of further ulcerations but also cautioned her that by straightening that digit it could cause transfer pressure and possible ulcerations to the distal aspects of the other digits. She will figure time on her schedule to pursue this procedure and contact us and we will take care of her Plan Of Treatment No Information Insurance Providers Payer Name Payer Address Payer Phone Subscriber Number Group Number Insured Name Patient Relationship to Insured Coverage Start Date Coverage End Date [facility] [address] [place] [address] [id number] Jessica Mccall Self - patient is the insured Medical (General) History Medical History History ICD Code Arthritis Diabetes Neuropathy of Feet PCOS Surgical History Surgery Date(Month/Year)
--- OUTSIDE RECORDS SUMMARY | 2024-12-05 20:53 | XMS_ITS | Encounter Summary ---
Author Organization [facility] Healthcare Address [address] [place] [address] Care Team Providers Care Engineering Systems Analyst Name Role Phone Jerel Jackson MD Primary Care Provider + Sallie Etienne MD Unavailable Darcy Hart MD Unavailable [phone] Reason for Referral * Diagnostic Imaging (Routine) - Authorized Specialty Diagnoses / Procedures Referred By Contac t Referred To Contact Diagnoses Polyarthralgia Procedures XR Hand Left 3+ Vw Jerel Jackson MD [address] [place] [address] Phone: tel: fax: [address] [phone] Referral ID Status Reason Start Date Expiration Date V isits Requested Visits Authorized [id number] Authorized 12/05/2024 01/04/2026 1 1 * Diagnostic Imaging (Routine) - Authorized Specialty Diagnoses / Procedures Referred By Contac t Referred To Contact Diagnoses Polyarthralgia Procedures XR Hand Right 3+ Vw Jerel Jackson MD [address] [place] [address] Phone: tel: fax: [address] [phone] Referral ID Status Reason Start Date Expiration Date V isits Requested Visits Authorized [id number] Authorized 12/05/2024 01/04/2026 1 1 * Consultation (Routine) - Authorized Specialty Diagnoses / Procedures Referred By Contac t Referred To Contact Pulmonary Disease / Pulmonology Diagnoses Fatigue, unspecified type Jerel Jackson MD [employer] [address] Phone: tel: fax: [facility] [place] [address] [address] Phone: tel: fax: Referral ID Status Reason Start Date Expiration Date Visits Requested Visits Authorized [id number] Authorized Specialty Services Required 12/05/2024 01/04/2026 1 1 Question Answer Please select the performing region: [facility] [[id number]] Please select the performing department: [facility] 350 [[id number]] # of visits: 1 Comments 44 yo F with fatigue, unrestful sleep. Please evaluate for SHEILA * Procedure (Routine) - Authorized Specialty Diagnoses / Procedures Referred By Contac t Referred To Contact Family Medicine Diagnoses Screening for colon cancer Jerel Jackson MD [address] [place] [address] Phone: tel: fax: [facility] [address] [address] Phone: tel: fax: Referral ID Status Reason Start Date Expiration Date Visits Requested Visits Authorized [id number] Authorized Specialty Services Required 12/05/2024 01/04/2026 1 1 Question Answer Procedure to be performed Colonoscopy Please select the performing region: [facility] [[id number]] Please select the performing department: [facility] [[id number]] # of visits: 1 Reason for Visit * Reason Comments Preventative Care Encounter Details Date Type Department Care Team ([facility] st Contact Info) Description 12/05/2024 3:00 PM CDT Office Visit [facility] Primary Care [address] [place] [phone] Jerel Jackson MD [employer] [address] Annual physical exam (Primary Dx); Type 2 diabetes mellitus with hyperglycemia, without long-term current use of insulin (HCC); JANUSZ (generalized anxiety disorder); Psychophysiological insomnia; Dyslipidemia; Morbid (severe) obesity due to excess calories (HCC); Endometrial carcinoma (HCC); Polyarthralgia; Screening for colon cancer; Fatigue, unspecified type; Need for vaccination Social History Tobacco Use Types Packs/Day Years [...] on file 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 Subjective/Objective Patient ID: Jessica Mccall is a 44 y.o. female. Chief Complaint Preventative Care Vitals: 12/05/24 1454 BP: 120/70 BP Location: Left arm Patient Position: Sitting Pulse: 93 Resp: 16 Temp: (!) 35.6 ??C (96 ??F) TempSrc: Temporal SpO2: 99% Weight: 115.2 kg (254 lb) Height: 177.8 cm (5' 10 ) Wt Readings from Last 3 Encounters: 12/05/24 115.2 kg (254 lb) 10/04/24 115.6 kg (254 lb 14.4 oz) 07/26/24 112.4 kg (247 lb 12.8 oz) History of Present Illness Jessica Mccall is a 44 year old female with diabetes, anxiety, insomnia, hyperlipidemia, and endometrial adenocarcinoma who presents for an annual physical exam and follow-up on chronic medical conditions. She experiences worsening joint pain, which flares up intermittently. The pain affects her fingers,shoulders, knees, and other joints, occurring approximately two weeks out of each month, with episodes lasting about a week to ten days. On some days, she can walk half a mile without issue, while onother days, she struggles to walk from her car to her house. She also reports persistent fatigue and a lack of strength, which she attributes to her recovery from chemotherapy and significant weight loss. She has a history of diabetes and is currently taking Mounjaro at a dose of 10 mg, as she is unableto obtain the 12.5 mg dose. She is no longer taking metformin and does not use a glucose monitor anymore. Her A1c is 4.7. She experiences insomnia and takes trazodone every night to aid sleep. While it helps her sleep better than without it, she still feels fatigued and unrefreshed upon waking. She has not undergone a sleep study and does not think she snores. She has a history of anxiety but is not currently taking hydroxyzine. She feels she is managing heranxiety well without medication. She has hyperlipidemia and is taking atorvastatin. She has a history of endometrial adenocarcinoma, for which she follows up with gynecology and oncology. She is status post-hysterectomy and has experienced increased UTIs post-radiation, for which she takes oxybutynin to aid bladder emptying. Chronic Medical Conditions: Diabetes, type 2 - mounjaro 10 mg qwk; follows with endocrine - dx 2018; hx of non-compliance - hx of DKA Diabetic Health Maintenance - Last A1c: 4.7 Date: 12/05/24 - Annual Eye Exam: 11/2021 - Cholesterol Screenin12/01/23 - Nephropathy Screenin12/01/23 Insomnia - trazodone 50mg qhs; works well Hyperlipidemia - atorvastatin 40mg daily PCOS - dx 1999; Incomplete bladder emtying - oxybutynin xl 5 mg daily Endometrial adenocarcinoma - follows with crew leader gluing/onc; s/p hysterectomy Health Maintenance: - Colonoscopy (45-75): due - Tobacco history: Never used - Exercise: no Specialists Involved in Care: - Endo Health Maintenance Topic Date Due Breast Cancer Screening-Mammogram Never done Colon Cancer Screening-Colonoscopy Never done Hepatitis C Screening Never done Hepatitis B Screening Never done Zoster Vaccine (1 of 2) Never done Pneumococcal vaccine <65 (2 of 2 - PCV) 07/04/2020 Covid-19 Vaccine (3 - Moderna risk series) 11/21/2020 Foot Exam 12/04/2022 Lipid Panel 11/30/2024 Albumin Creatinine Ratio, Urine 11/30/2024 eGFR 04/07/2025 Hemoglobin A1C 06/06/2025 Depression Screening 12/05/2025 Regular Well Visit/Exam 18-64 12/05/2025 Dilated Eye Exam 03/16/2026 DTaP/Tdap/Td Vaccine (3 - Td or Tdap) 12/05/2034 Influenza Vaccine Completed HPV Vaccines Aged Out Lab Results Component Value Date GFRNAA 67 04/07/2024 CHOL 117 12/01/2023 TRIG 130 12/01/2023 HDL 36 (L) 12/01/2023 LDLCALC 55 12/01/2023 GLUCOSE 116 04/07/2024 SODIUM 139 04/07/2024 POTASSIUM 3.9 04/07/2024 CHLORIDE 102 04/07/2024 ALT 15 04/07/2024 AST 17 04/07/2024 ALKPHOS 59 04/07/2024 HGBA1C 4.7 12/05/2024 Physical Exam Vitals reviewed. Constitutional: Appearance: She is well-developed. HENT: Head: Normocephalic and atraumatic. Right Ear: Tympanic membrane and external ear normal. Left Ear: Tympanic membrane and external ear normal. Mouth/Throat: Mouth: Mucous membranes are moist. Pharynx: Uvula midline. No oropharyngeal exudate or posterior oropharyngeal erythema. Eyes: General: Right eye: No discharge. Left eye: No discharge. Conjunctiva/sclera: Conjunctivae normal. Pupils: Pupils are equal, round, and reactive to light. Cardiovascular: Rate and Rhythm: Normal rate and regular rhythm. Heart sounds: Normal heart sounds, S1 normal and S2 normal. No murmur heard. No friction rub. No gallop. Pulmonary: Effort: Pulmonary effort is normal. No respiratory distress. Breath sounds: Normal breath sounds. No wheezing or rales. Abdominal: General: Bowel sounds are normal. There is no distension. Palpations: Abdomen is soft. Tenderness: There is no abdominal tenderness. There is no guarding or rebound. Musculoskeletal: Right foot: No deformity. Left foot: No deformity. Feet: Right Foot: Skin Integrity: Negative for ulcer, blister or skin breakdown. Left Foot: Skin Integrity: Negative for ulcer, blister or skin breakdown. Skin: General: Skin is warm and dry. Findings: No rash. Neurological: General: No focal deficit present. Mental Status: She is alert and oriented to person, place, and time. Psychiatric: Mood and Affect: Mood normal. Speech: Speech normal. Behavior: Behavior normal. Thought Content: Thought content normal. Judgment: Judgment normal. Assessment/Plan Diagnoses and all orders for this visit: Type 2 diabetes mellitus with hyperglycemia, without long-term current use of insulin (HCC) (Primary) - POCT hemoglobin A1c - Lipid panel; Future - Vitamin B12; Future - Comprehensive metabolic panel; Future - Albumin Creatinine Ratio, Urine; Future JANUSZ (generalized anxiety disorder) Psychophysiological insomnia Dyslipidemia Morbid (severe) obesity due to excess calories (HCC) Endometrial carcinoma (HCC) Annual physical exam - Lipid panel; Future - Vitamin B12; Future - Comprehensive metabolic panel; Future - Albumin Creatinine Ratio, Urine; Future - Thyroid Function [place]; Future Polyarthralgia - Thyroid Function [place]; Future - JAYJAY ab ql w/rflx to JAYJAY qn; Future - Erythrocyte sedimentation rate; Future - CRP (acute phase); Future - XR Hand Right 3+ Vw; Future - XR Hand Left 3+ Vw; Future - Rheumatoid factor; Future Screening for colon cancer - Ambulatory referral to [facility] FM/GI Procedures; Future Fatigue, unspecified type - Ambulatory referral to Pulmonology; Future - CBC with auto differential; Future Need for vaccination - Tdap vaccine greater than or equal to 7yo IM Assessment & Plan Joint Pain Worsening joint pain with intermittent flares affecting multiple joints, including fingers, shoulders, knees, and back. Pain lasts 7-10 days, occurring twice monthly. Accompanied by fatigue and weakness since radiation therapy. Differential includes rheumatoid arthritis or other autoimmune conditions. - Order labs to investigate joint pain - Order x-ray to assess for signs of rheumatoid arthritis or other inflammatory arthritis - Recommend Tylenol or ibuprofen for pain management - Encourage continued exercise as tolerated Endometrioid Adenocarcinoma of Uterus Status post hysterectomy, follows with gynecology and oncology. Reports increased fatigue and jointpain since radiation therapy. . - Continue current management per oncology. Type 2 Diabetes Mellitus with Hyperglycemia A1c is 4.7, indicating good glycemic control. On Mounjaro 10 mg weekly, metformin discontinued. Significant weight loss has improved glucose control. No glucose monitoring needed currently. - Continue Mounjaro 10 mg weekly per endocrinology - Encouraged continued exercise. Mixed Hyperlipidemia On atorvastatin 40 mg daily for hyperlipidemia. - Continue atorvastatin 40 mg daily Psychophysiological Insomnia Uses trazodone nightly, improving sleep quality. Still experiences fatigue and unrest. - Continue trazodone 50 mg qhs Fatigue Uses trazodone nightly, improving sleep quality. Still experiences fatigue and unrest. - Referral to pulmonology for sleep study to evaluate for sleep apnea as a contributing factor to fatigue. Generalized Anxiety Disorder (JANUSZ) Manages anxiety without medication, feels it is manageable. General Health Maintenance Due for colonoscopy and tetanus vaccination. - Schedule colonoscopy - Administer tetanus vaccination today Follow-up Follow-up in six months, with adjustments based on lab and x-ray results. - Schedule follow-up appointment in six months Orders Placed This Encounter Procedures XR Hand Right 3+ Vw Standing Status: Future Expected Date: 12/05/2024 Expiration Date: 12/05/2025 Clinical question to be answered:: 44 yo F with chronic joint pain in the hands. please evaluate Is the patient ?: No Where should this order be performed?: [facility] [[id number]] XR Hand Left 3+ Vw Standing Status: Future Expected Date: 12/05/2024 Expiration Date: 12/05/2025 Clinical question to be answered:: 44 yo F with chronic joint pain in the hands. please evaluate Is the patient ?: No Where should this order be performed?: [facility] [[id number]] Tdap vaccine greater than or equal to 7yo IM Lipid panel Standing Status: Future Expected Date: 12/05/2024 Expiration Date: 12/05/2025 Vitamin B12 Standing Status: Future Expected Date: 12/05/2024 Expiration Date: 12/05/2025 Comprehensive metabolic panel Standing Status: Future Expected Date: 12/05/2024 Expiration Date: 12/05/2025 Albumin Creatinine Ratio, Urine Standing Status: Future Expected Date: 12/05/2024 Expiration Date: 12/05/2025 Thyroid Function [place] Standing Status: Future Expected Date: 12/05/2024 Expiration Date: 12/05/2025 JAYJAY ab ql w/rflx to JAYJAY qn Standing Status: Future Expected Date: 12/08/2024 Expiration Date: 12/05/2025 Erythrocyte sedimentation rate Standing Status: Future Expected Date: 12/08/2024 Expiration Date: 12/05/2025 CRP (acute phase) Standing Status: Future Expected Date: 12/08/2024 Expiration Date: 12/05/2025 CBC with auto differential Standing Status: Future Expected Date: 12/08/2024 Expiration Date: 12/05/2025 Rheumatoid factor Standing Status: Future Expected Date: 12/08/2024 Expiration Date: 12/05/2025 Ambulatory referral to [facility] FM/GI Procedures Standing Status: Future Expected Date: 12/19/2024 Expiration Date: 12/05/2025 Referral Priority: Routine Referral Type: Procedure Referral Reason: Specialty Services Required Referral Location: [facility] Number of Visits Requested: 1 Ambulatory referral to Pulmonology 44 yo F with fatigue, unrestful sleep. Please evaluate for SHEILA Standing Status: Future Expected Date: 01/02/2025 Expiration Date: 12/05/2025 Referral Priority: Routine Referral Type: Consultation Referral Reason: Specialty Services Required Referral Location: [facility] Requested Specialty: Pulmonary Disease Number of Visits Requested: 1 POCT hemoglobin A1c This patient has verbally consented to recording this visit in order to utilize AI technology in generating this note. *This note is dictated using [employer] voice recognition software, variances in spelling and vocabulary are possible and unintentional.* Jerel Jackson MD documented in this encounter Plan of Treatment Upcoming Encounters Date Type Department Care Team (Late st Contact Info) Description 12/06/2024 11:20 AM CDT Office Visit [facility] [address] [facility] 13th [place] [address] [place] [address] Darcy Hart MD [address] [phone] [place] [address] Encounter for routine cancer follow-up (Primary Dx); Endometrioid adenocarcinoma of uterus (HCC); Hypertension, unspecified type Scheduled Orders Name Type Priority Associated Diagnoses Orde r Schedule Lipid panel Lab Routine Type 2 diabetes mellitus with hyperglycemia, without long-term current use of insulin (HCC) Annual physical exam Expected: 12/05/2024, Expires: 12/05/2025 Vitamin B12 Lab Routine Type 2 diabetes mellitus with hyperglycemia, without long-term current use of insulin (HCC) Annual physical exam Expected: 12/05/2024, Expires: 12/05/2025 Comprehensive metabolic panel Lab Routine Type 2 diabetes mellitus with hyperglycemia, without long-term current use of insulin ([facility]) Annual physical exam Expected: 12/05/2024, Expires: 12/05/2025 Albumin Creatinine Ratio, Urine Lab Routine Type 2 diabetes mellitus with hyperglycemia, without long-term current use of insulin ([facility]) Annual physical exam Expected: 12/05/2024, Expires: 12/05/2025 Thyroid Function [place] Lab Routine Annual physical exam Polyarthralgia Expected: 12/05/2024, Expires: 12/05/2025 JAYJAY ab ql w/rflx to JAYJAY qn Lab Routine Polyarthralgia Expected: 12/08/2024, Expires: 12/05/2025 Erythrocyte sedimentation rate Lab Routine Polyarthralgia Expected: 12/08/2024, Expires: 12/05/2025 CRP (acute phase) Lab Routine Polyarthralgia Expected: 12/08/2024, Expires: 12/05/2025 CBC with auto differential Lab Routine Fatigue, unspecified type Expected: 12/08/2024, Expires: 12/05/2025 XR Hand Right 3+ Vw Imaging Schedule Rou elfego, Read Routine (OP Routine) Polyarthralgia Expected: 12/05/2024, Expires: 12/05/2025 XR Hand Left 3+ Vw Imaging Schedule Rout ine, Read Routine (OP Routine) Polyarthralgia Expected: 12/05/2024, Expires: 12/05/2025 Rheumatoid factor Lab Routine Polyarthralgia Expected: 12/08/2024, Expires: 12/05/2025 Scheduled Referrals Name Type Priority Associated Diagnoses Orde r Schedule Ambulatory referral to [facility] FM/GI Procedures Outpatient Referral Routine Screening for colon cancer Expected: 12/19/2024 (Approximate), Expires: 12/05/2025 Ambulatory referral to Pulmonology Outpatient Referral Routine Fatigue, unspecified type Expected: 01/02/2025 (Approximate), Expires: 12/05/2025 documented as of this encounter Procedures Procedure Name Priority Date/Time Associated Diagnosis Comments POCT HEMOGLOBIN A1C Routine 12/05/2024 3 :07 PM CDT Type 2 diabetes mellitus with hyperglycemia, without long-term current use of insulin ([facility]) documented in this encounter Results * POCT hemoglobin A1c (12/05/2024 3:07 PM CDT) Hemoglobin A1C, POC 4.7 4.0 - 5.6 % Blood 12/05/2024 3:07 PM CDT Jerel Jackson MD POINT OF CARE TEST ORDER MEME Final Result documented in this encounter Visit Diagnoses Diagnosis Annual physical exam- Primary Routine general medical examination at a health care facility Type 2 diabetes mellitus with hyperglycemia, without long-term current use of insulin (HCC) JANUSZ (generalized anxiety disorder) Generalized anxiety disorder Psychophysiological insomnia Persistent disorder of initiating or maintaining sleep Dyslipidemia Other and unspecified hyperlipidemia Morbid (severe) obesity due to excess calories (HCC) Endometrial carcinoma (HCC) Polyarthralgia Pain in joint, multiple sites Screening for colon cancer Special screening for malignant neoplasms, colon Fatigue, unspecified type Need for vaccination Need for prophylactic vaccination and inoculation against unspecified single disease Encounter for routine cancer follow-up- Primary Endometrioid adenocarcinoma of uterus (HCC) Malignant neoplasm of uterus, part unspecified Hypertension, unspecified type documented in this encounter Discontinued Medications Medication Sig Discontinue Reason Start Date End Da te hydrOXYzine (ATARAX) 25 mg tabletIndications:JANUSZ (generalized anxiety disorder) Take 1 tablet (25 mg total) by mouth 3 (three) times a day as needed for anxiety 07/20/2023 12/05/2024 hydroCHLOROthiazide (HYDRODIURIL) 25 mg tabletIndications:Hypert ension, unspecified type Take 1 tablet (25 mg total) by mouth daily 03/18/2024 12/05/2024 magnesium oxide (MAG-OX) 400 mg (241.3 mg elemental magnesium) tabletIndications:hypoma gnesemia Take 1 tablet (400 mg total) by mouth daily 12/14/2023 12/05/2024 documented as of this encounter Historical Medications * This list may reflect changes made after this encounter. tirzepatide (MOUNJARO) 10 mg/0.5 mL pen injector injection Inject 0.5 mL (10 mg total) under the skin every 7 days added in this encounter Orders Immunization/Injection Count Last Ordered Date First Ordered Date TDAP VACCINE GREATER THAN OR EQUAL TO 7YO IM 1 12/05/2024 documented in this encounter Care Teams Engineering Systems Analyst Relationship Specialty Start Date End Date Jerel Jackson MD [address] [place] [address] PCP - General Family Medicine 12/04/21 Sallie Etienne MD [address] [place] [address] Radiation Oncologist Radiation Oncology 04/15/24 Darcy Hart MD [address] DIV OBGYN GYNECOLOGIC ONCOLOGY, [address] [address] Surgeon Gynecologic Oncology 04/18/24 documented as of this encounter
--- OUTSIDE RECORDS SUMMARY | 2024-12-05 20:53 | XMS_ITS | Encounter Summary ---
Author Organization [facility] Address [address] [place] [address] Phone Care Team Providers Care Sail Repair Person Name Role Phone Jerel Jackson MD Primary Care Provider + yLnette Mayfield MA Unavailable [phone] Sallei Etienne MD Unavailable Darcy Hart MD Unavailable Encounter Details Date Type Department Care Team (Late st Contact Info) Description 09/25/2023 Documentation [facility] Obstetrics and Gynecology [address] [facility] Advanced Medicine 13th [place] [address] [place] [address] Fredis Bahena Social History Tobacco Use Types Packs/Day Years Used Date Smoking Tobacco: Never AUDIT-C Answer Date Recorded Q1: How often do you have a drink containing alc ohol? Monthly or less 12/04/2021 Average Number of Drinks Not on file 022 Frequency of Binge Drinking Not on file 11/07 PHQ-2 Answer Date Recorded PHQ-2 Total Score (If total score is 3 or more points, staff should administer the PHQ-9) 1 07/20/2023 Hunger Vital Sign Answer Date Recorded Within the past 12 months, y ou worried that your food would run out before you got the money to buy more. Never true 09/10/19 24 Within the past 12 months, t he food you bought just didn't last and you didn't have money to get more. 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 Gender Identity Not on file Sexual Orientation Not on file documented as of this encounter Plan of Treatment Upcoming Encounters Date Type Department Care Team (Late st Contact Info) Description 12/06/2024 11:20 AM CDT Office Visit [facility] Obstetrics and Gynecology [address] [facility] 13th [place] [address] [place] [address] Darcy Hart MD [address] [phone] [place] [address] Encounter for routine cancer follow-up (Primary Dx); Endometrioid adenocarcinoma of uterus (HCC); Hypertension, unspecified type documented as of this encounter Visit Diagnoses Not on filedocumented in this encounter Care Teams Sail Repair Person Relationship Specialty Start Date End Date Jerel Jackson MD [facility] [address] [place] [address] PCP - General Family Medicine 12/04/21 Lynette Mayfield MA [address] [facility] [address] [place] [address] ACO Care Broommaking Supervisor 01/01/24 01/01/24 Sallie Etienne MD [address] [facility] [address] [place] [address] Radiation Oncologist Radiation Oncology 04/15/24 Darcy Hart MD [address] DIV OBGYN GYNECOLOGIC ONCOLOGY, [facility] [address] [place] [address] Surgeon Gynecologic Oncology 04/18/24 documented as of this encounter
--- OUTSIDE RECORDS SUMMARY | 2024-12-05 20:53 | XMS_ITS | Clinical Summary ---
Author Organization [facility] Address [address] [place] [address] Care Team Providers Care Drapery Examiner Name Role Phone Mildred Price SENIOR BILLING CONSULTANT Primary Care Provider Unavaila ble Allergies Active Allergy Reactions Criticality Noted Date Comments Naproxen Other (see comment),Unknown 06/26/2016 Reaction: Unknown, , Medications lisinopril 5 MG tabletIndication s:Type 2 diabetes mellitus with hyperglycemia, without long-term current use of insulin ([facility]) Take one tab by mouth daily 30 tablet 2 03/08/2019 Active Active Problems Problem Noted Date Diagnosed Date Vitamin D deficiency 07/08/2019 Low iron 07/04/2019 Type 2 diabetes mellitus wit h hyperglycemia, without long-term current use of insulin ([facility]) 03/08/2019 Overview (03/08/2019): increase metformin to 1gm BID get labs done start lisinopril 5mg daily follow up in 3 months sooner if blood sugars rising or symptomatic Weight gain 06/29/2017 Knee pain 01/21/2017 Hyperglycemia 06/26/2016 Migraines 06/26/2016 Obesity 06/26/2016 PCOS (polycystic ovarian syndrome) 06/26/2016 Resolved Problems Problem Noted Date Diagnosed Date Resolved Date Cough 06/19/2017 12/21/2018 Sinusitis 06/19/2017 12/21/2018 Encounter for preventive health examination 06/25/2016 12/21/2018 Immunizations Name Administration Dates Next Due MODERNA COVID-19 (12+) MRNA, LNP-S, PF, 100 MCG/ 0.5 ML DOSE 10/24/2020,09/26/2020 Pneumococcal (Pneumovax 23) 07/04/2019 Family History Medical History Relation Comments Diabetes Father Heart Disease Father Cancer Maternal Aunt Diabetes Maternal Grandfather Cancer Maternal Grandmother Heart Disease Paternal Grandfather Kidney Disease Paternal Grandfather Cancer Paternal Grandmother Relation Status Comments Father Maternal Aunt Maternal Grandfather Maternal Grandmother Paternal Grandfather Paternal Grandmother Social History Tobacco Use Types Packs/Day Years Used Date Smoking Tobacco: Never Smokeless Tobacco: Never Tobacco Cessation:Counseling Given: No Alcohol Use Standard Drinks/Week Comments Yes 0 (1 standard drink = 0.6 oz pur e alcohol) AUDIT-C Answer Date Recorded Frequency of Alcohol Consumption Monthly or less 12/21/2018 Average Number of Drinks 1 or 2 019 Frequency of Binge Drinking Not on file 12/06 Comments Unknown Sex and Gender Information Value Date Recorded Sex Assigned at Not on file Legal Sex Female 6:57 PM CDT Gender Identity Not on file Sexual Orientation Not on file Last Filed Vital Signs Vital Sign Reading Time Taken Comments Blood Pressure 122/80 07/04/2019 8:15 AM CDT Pulse 82 07/04/2019 8:15 AM CDT Temperature 36.7 C (98 F) 07/04/2019 8:15 AM CDT Respiratory Rate 16 07/04/2019 8:15 AM CDT Oxygen Saturation 98% 07/04/2019 8:15 AM CDT Inhaled Oxygen Concentration - - Weight 157.4 kg (347 lb) 07/04/2019 8:15 AM CDT Height 180.3 cm (5' 11 ) 07/04/2019 8:15 AM CDT Body Mass Index 48.4 07/04/2019 8:15 AM CDT Plan of Treatment Health Maintenance Due Date Last Done Comments Cervical Cancer Screening Pap Smear (Age 30 to 64) Every 3 Years 1979 Colorectal Cancer Screening Colonoscopy (10 Years) 1979 Kidney Health Evaluation 1979 Annual Physical 1982 Diabetes: Retinopathy Eye Exam 1997 Hepatitis C 1997 DTaP, Tdap and Td Vaccines (1 - Tdap) 1998 Hepatitis B Vaccines (1 of 3 - 19+ 3-dose series) 1998 Cervical Cancer Screening Pap with HPV Testing (Age 30 to 64) Every 5 Years 2009 Cervical Cancer Screening with HPV 2009 Mammogram Screening 2019 Hemoglobin A1C 01/03/2020 07/04/2019, 06/07, 06/26/2016 Lipid Panel 07/04/2020 07/04/2019, 06/07, 06/19/2017, Additional history exists Pneumococcal Vaccine: Pediatrics (0 to 5 Years) and At-Risk Patients (6 to 64 Years) (2 of 2 - PCV) 07/04/2020 07/04/2019 COVID-19 Vaccine ( season) 2024 10/24/2020, 09/26/2020 HPV Vaccines Aged Out No longer eligi ble based on patient's age to complete this topic Meningococcal B Vaccine Aged Out No l onger eligible based on patient's age to complete this topic Meningococcal Vaccine Aged Out No ray ida eligible based on patient's age to complete this topic RSV Immunizations Under 20 Months Aged Out No longer eligible based on patient's age to complete this topic Procedures Procedure Name Priority Date/Time Associated Diagnosis Comments LIPID PANEL Routine 07/04/2019 8:24 AM CDT Class 3 severe obesity without serious comorbidity with body mass index (BMI) of 50.0 to 59.9 in adult, unspecified obesity type Healthcare maintenance Type 2 diabetes mellitus with hyperglycemia, without long-term current use of insulin HEMOGLOBIN, GLYCOSYLATED Routine 07/04/2019 8:13 AM CDT Class 3 severe obesity without serious comorbidity with body mass index (BMI) of 50.0 to 59.9 in adult, unspecified obesity type Healthcare maintenance from Last 3 Months or Most Recently Relevant to Health Maintenance Results * (ABNORMAL) LIPID PANEL (07/04/2019 8:24 AM CDT) CHOLESTEROL 140 <200 mg/dL [facility] HDL 38(L) >50 mg/dL [facility] TRIGLYCERIDES 123 <150 mg/dL [facility] LDL (CALCULATED) 80 mg/dL (calc) [facility] Comment: Reference range: <100 Desirable range <100 mg/dL for primary prevention; <70 mg/dL for patients with CHD or diabetic patients with > or = 2 CHD risk factors. LDL-C is now calculated using the Travis-Russo calculation, which is a validated novel method providing better accuracy than the Friedewald equation in the estimation of LDL-C. Travis SS et al. POOJA. 2013;310(19): 9896-2342 (http://education.Furious/faq/ESH917) CHOL/HDL RATIO 3.7 <5.0 (calc) [facility] NON HDL CHOLESTEROL 102 <130 mg/dL (calc) [facility] Comment: For patients with diabetes plus 1 major ASCVD risk factor, treating to a non-HDL-C goal of <100 mg/dL (LDL-C of <70 mg/dL) is considered a therapeutic option. 07/04/2019 8:24 AM CDT 07/05/2019 3:23 AM CDT Narrative Resulting Agency Comment Performing Organization Information: Site ID: [place] Name: [facility] Address: [address] [place] [address] Director: Karlos Crump D.O., MPH Mildred Price SENIOR BILLING CONSULTANT LABORATORY Final Result Performing Organization Address [facility] de Phone Number [employer] ORDERS * HEMOGLOBIN, GLYCOSYLATED (07/04/2019 8:13 AM CDT) HGB A1C 7.0 [facility] Blood specimen (specimen) 07/04/2019 8:13 AM CDT us Mildred Price SENIOR BILLING CONSULTANT LABORATORY Final Result Performing Organization Address [facility] Co de Phone Number [facility] [address] [place] [address], from Last 3 Months or Most Recently Relevant to Health Maintenance Insurance [id number] Care Teams Drapery Examiner Relationship Specialty Start Date End Date Mildred Price NP PCP - General NURSE PRACTITIONER 12/21/18
--- OUTSIDE RECORDS SUMMARY | 2024-12-05 20:53 | XMS_ITS ---
Author Organization 1 OF Jonatan huffman [facility] Address [address] [address] [place] [address] Care Team Providers Care Tank Processor Name Role Phone Jerel Jackson Primary Care Provider Jarred Donnelly [phone] Allergies No Known Allergies REASON FOR VISIT F/U Rt toe wound T6 Medications Medication SIG (Take, Route, Frequency, Duration) [...] 8 hrs for 10 day(s) 04/24/2023 Not-Taking Mounjaro 10 MG/0.5ML as directed Subcutaneous Active Doxycycline Hyclate 100 MG 1 tablet Oral ly Twice a day for 7 days 03/17/2024 Not-Taking hydroCHLOROthiazide Not-Taking Doxycycline Hyclate 100 MG 1 tablet Oral ly Twice a day for 7 days 01/29/2024 Not-Taking Cefadroxil 500 MG 1 capsule Orally every 12 hrs for 7 days 10/17/2024 Active traZODone HCl 50 MG 1 tablet at bedtime as needed Orally Once a day Active Tirzepatide Active Atorvastatin Calcium 40 MG 1 tablet Oral ly Once a day Active Problems Problem Type SNOMED Code ICD Code Onset Dates Problem Status W/U Status Risk Notes Problem [id number] Hammertoe of right foot (M20.41) Active confirmed Vital Signs Height 71 in 11/01/2024 Weight 245 lbs 11/01/2024 BMI 34.17 kg/m2 11/01/2024 Encounters Encounter Location Date Provider Diagnosis 1 OF Jonatan Lucio [facility] [address] [place] [address] 11/01/2024 Jarred Taveras Ingrowing nail L60.0 ; Paronychia of toe of right foot L03.031 ; Non-pressure chronic ulcer of other part of right foot with fat layer exposed L97.512 ; Type 2 diabetes mellitus with foot ulcer E11.621 and Hammertoe of right foot M20.41 Assessments Encounter Date Diagnosis (ICD Code) Assessment Notes Treatment Notes Treatment Clinical Notes Section Notes 11/01/2024 Ingrowing nail (ICD-10 - L60.0) 11/01/2024 Paronychia of toe of right foot (ICD-10 - L03.031) 11/01/2024 Non-pressure chronic ulcer of other part of right foot with fat layer exposed (ICD-10 - L97.512) 11/01/2024 Type 2 diabetes mellitus with foot ulcer (ICD-10 - E11.621) 11/01/2024 Hammertoe of right foot (ICD-10 - M20.41) 11/01/2024 Other I did examine a nd [...] take care of her Plan Of Treatment Treatment Notes Assessment Notes Other I did examine and ev aluate the patient today. I was pleased to [...] and we will take care of her Next Appt Details Follow Up: prn, Reason: Progress Notes * Jessica VIDALESDOB: [birth year] (44 yo F)Acc No.[id number]:11/01/2024 Progress Notes Patient: Jessica RICO Provider: Yuliana Taveras DPM :1980 A ge:44 Y S ex:Female Date:11/01/2024 Address:[address] [place] [address] [facility] Pcp:Jerel Jackson Subjective: * Chief Complaints: * F /U Rt toe wound T6 * HPI: Yesenia Castellano assisting with visit:: Chart Prep Daily desai. HPI/Rooming: Daily desai. Luz jordan reason for visit:: 44 year old female RTO for Right toe wound (T6). At the last visit pt had an avulsion of nail plate of T6 and wound was cleaned and debrided. Today the pt reports that the wound appears healed and she no longer has pain in the area. * Medical History: * Surgical History: D enies Past Surgical History * Hospitalization/Major Diagno stic Procedure: D enies Past Hospitalization * Family History: Family hx of diabetes, RA, DVT, and cancer. * Medications: T akingAtorvastatin Calcium 40 MG Tablet 1 tablet Orally Once a day Tirzepatide traZODone HCl 50 MG Tablet 1 tablet at bedtime as needed Orally Once a day Mounjaro 10 MG/0.5ML Solution Pen-injector as directed Subcutaneous Cefadroxil 500 MG Capsule 1 capsule Orally every 12 hrs Taking Atorvastatin Calcium 40 MG Tablet 1 tablet Orally Once a day Taking Tirzepatide Taking traZODone HCl 50 MG Tablet 1 tablet at bedtime as needed Orally Once a day Taking Mounjaro 10 MG/0.5ML Solution Pen- injector as directed Subcutaneous Taking Cefadroxil 500 MG Capsule 1 capsule Orally every 12 hrs Not-Taking/PRNhydroCHLOROthiazide Doxycycline Hyclate 100 MG Tablet 1 [...] Tablet 1 tablet Orally Twice a day * Allergies: N .K.D.A.no[Allergies Verified] Objective: * Vitals: W t:245lbs, Wt-k.13 kg, Ht:71in, BMI:34.17Index. * Examination: G eneral Examination: Constitutional / Appearance: N o acute distress , Well nourished, Appropriate personal hygiene. Mental status: C ooperative, Oriented to person, place and time, Mood and affect: normal, Judgement and intellect: normal with appropriate response to questions. Shoes today: t jacqueline shoe. T he nailbed of the right second digit is clean dry and intact without evidence of early recurrence or cardinal signs of infection and the ulceration noted to the distal aspect of this digit is fully epithelialized and this digit is contracted at the level of the PIPJ and a semiflexible nature. W ound Evaluation: : Wound A L ocation: Distal T6, Date of initial evaluation: 10/17/2024 Measurement Hx (following debridement): 10/17/2024: 2.5 cm x 2.9 cm x 0.2 cm depth 11/01/2024: RESOLVED Appearance today: SEE EXAM. Assessment: * Assessment: 1. I ngrowing nail - L60.0 2 . N on-pressure chronic ulcer of other part of right foot with fat layer exposed - L97.512 3 . P aronychia of toe of right foot - L03.031 (Primary) 4 . T ype 2 diabetes mellitus with foot ulcer - E11.621 5. H ammertoe of right foot - M20.41 Plan: * Treatment: * Procedure Codes: * Preventive Medicine: Counseling: C are goal follow-up plan: BMI counseling provided to patient:?Lifestyle education * Follow Up: p rn * Images: * ERTY ASSESSMENT MONITOR Sign off status: Completed true * Provider: Yuliana Taveras DPM Date: 0 11/01/2024 Generated for Harvinder núñez/Shauna/Romain on: 0 12/05/2024 02:46 PM CDT History and Physical Notes * HPI (History of Present Illness) Category Sub-Category Detail Notes Category Not es Primary reason for visit: 44 year old female RTO for Right toe wound (T6). At the last visit pt had an avulsion of nail plate of T6 and wound was cleaned and debrided. Today the pt reports that the wound appears healed and she no longer has pain in the area. MA assisting with visit: HPI/Rooming: Wing Chart Prep Wing Examination Category Sub-Category Detail Notes Category Not es General Examination Mental status: Cooperative, Oriented to per son, place and time, Mood and affect: normal, Judgement and intellect: normal with appropriate response to questions The nailbed of the right second digit is clean dry and intact without evidence of early recurrence or cardinal signs of infection and the ulceration noted to the distal aspect of this digit is fully epithelialized and this digit is contracted at the level of the PIPJ and a semiflexible nature Shoes today: tennis shoe Constitutional / Appearance: No acute di stress , Well nourished, Appropriate personal hygiene Wound Evaluation: Wound A Location: Dist al T6 , Date of initial evaluation: 10/17/2024 Measurement Hx (following debridement): 10/17/2024: 2.5 cm x 2.9 cm x 0.2 cm depth 11/01/2024: RESOLVED Appearance today: SEE EXAM
[2024-12-05 21:01] VITALS: BP 143/82; PULSE 83; RESP 16; TEMP 36.2; O2SAT 100
--- NOTE | 2024-12-05 21:04 | PC.NURSE ---
Pt. has a puncture wound to R. toe. No active bleeding at this time. New bandage applied. Pt. able to ambulate.
--- NOTE | 2024-12-05 21:27 | ED.GENADULT ---
HPI - General Adult General Chief complaint: Wound/Laceration Stated complaint: stepped on nail Time Seen by Provider: 12/05/24 21:20 History of Present Illness HPI narrative: Patient is a 34-year-old female who presents ER after stepping on a nail. Wound is her shoe and into the plantar aspect of her great toe on the lung. Incidentally she had her tetanus shot updated today prior to the accident. She is diabetic and concerned she may develop an infection. She cleanse the area with a peroxide solution. Related Data Home Medications ?Medication ?Instructions ?Recorded ?Confirmed ?Last Taken ?Type Mounjaro 09/10/24 Unknown History blood-glucose sensor (Dexcom G7 09/10/24 Unknown History Sensor device) trazodone .ROUTE 09/10/24 Unknown History Allergies Allergy/AdvReac Type Severity Reaction Status Date / Time paclitaxel (From Taxol) AdvReac Anaphylactic Verified 12/05/24 20:51 Shock Review of Systems Constitutional: Constitutional: Reports no additional constitutional complaints Musculoskeletal: Musculoskeletal: Reports no additional musculoskeletal complaints Integumentary/Breasts: Skin/Breast: Reports system reviewed and no additional complaints, except [facility] Past Medical History Medical History (Updated 12/05/24 @ 21:30 by Brad Sims MD) Diabetes Family History Family History Mother Family history of autoimmune disorder Father Family history of diabetes mellitus in first degree relative Family history of coronary artery disease Family history of type 2 diabetes mellitus Family history of heart disease in male family member before age 55 Grandparent Family history of malignant neoplasm of breast Family history of amyotrophic lateral sclerosis Diabetes mellitus Social History Social History Smoking status: Never smoker Alcohol intake: current Exam Narrative: GENERAL: Well-appearing, well-nourished, and in no acute distress. HEAD: Normocephalic, atraumatic. EXTREMITIES: Normal range of motion. No edema. SKIN: Warm, dry, no rash. Puncture wound plantar aspect right great toe NEURO: Alert and oriented x3. PSYCH: Normal mood and affect. Course Course Emergency Course: X-ray without fracture. Augmentin and [place] here. Discharged with continued antibiotics. She will follow-up with her bindery cutter operator. Vital Signs Vital signs: Vital Signs Temperature 97.1 F L 12/05/24 21:01 Pulse Rate 83 12/05/24 21:01 Respiratory Rate 16 12/05/24 21:01 Blood Pressure 143/82 H 12/05/24 21:01 Pulse Oximetry 100 12/05/24 21:01 Oxygen Delivery Room Air 12/05/24 21:01 Temperature 97.1 F L 12/05/24 21:01 Pulse Rate 83 12/05/24 21:01 Respiratory Rate 16 12/05/24 21:01 Blood Pressure 143/82 H 12/05/24 21:01 Pulse Oximetry 100 12/05/24 21:01 Oxygen Delivery Room Air 12/05/24 21:01 Medical Decision Making Vital Signs Vital Signs: Vital Signs Temperature 97.1 F L 12/05/24 21:01 Pulse Rate 83 12/05/24 21:01 Respiratory Rate 16 12/05/24 21:01 Blood Pressure 143/82 H 12/05/24 21:01 Pulse Oximetry 100 12/05/24 21:01 Oxygen Delivery Room Air 12/05/24 21:01 Temperature 97.1 F L 12/05/24 21:01 Pulse Rate 83 12/05/24 21:01 Respiratory Rate 16 12/05/24 21:01 Blood Pressure 143/82 H 12/05/24 21:01 Pulse Oximetry 100 12/05/24 21:01 Oxygen Delivery Room Air 12/05/24 21:01 Imaging Data My impression: X-ray right toe: No fracture Discharge Plan Discharge Clinical Impression: Puncture wound of toe Patient Disposition: Home, Self-Care Condition: Stable Instructions: Antibiotic Form, Puncture Wound (ED) Additional Instructions: Return to the ER if your wound becomes increasingly painful, you have pus draining from the wound, or you have a red swollen foot. Follow-up with your bindery cutter operator for further treatment evaluation. Patient Language: Italian Prescriptions: New hydrocodone-acetaminophen 5-325 mg tablet 1 tablet PO Q6H PRN (Reason: pain) Qty: 10 0RF amoxicillin-pot clavulanate 875-125 mg tablet 1 tablet PO Q12H Qty: 20 0RF No Action (DME) Dexcom G7 Sensor Device MISCELLANEOUS ciprofloxacin HCl 500 mg tablet 500 mg PO Q12H 7 Days Qty: 14 0RF Mounjaro trazodone .ROUTE Follow-up/Referrals: Renetta,Jerel Jose MD [Primary Care Provider] - 1 Week
--- OUTSIDE RECORDS SUMMARY | 2024-12-05 21:33 | XMS_ITS | Clinical Summary ---
Author Organization [facility] Address [address] [place] [address] Care Team Providers Care Portuguese Tutor Name Role Phone Mildred Price CEO [employer] CO FOUNDER Primary Care Provider Unavaila ble Allergies Active Allergy Reactions Criticality Noted Date Comments Naproxen Other (see comment),Unknown 06/26/2016 Reaction: Unknown, , Medications lisinopril 5 MG tabletIndication s:Type 2 diabetes mellitus with hyperglycemia, without long-term current use of insulin ([facility]) Take one tab by mouth daily 30 tablet 2 03/08/2019 Active Active Problems Problem Noted Date Diagnosed Date Vitamin D deficiency 07/08/2019 Low iron 07/04/2019 Type 2 diabetes mellitus wit h hyperglycemia, without long-term current use of insulin ([facility]) 03/08/2019 Overview (03/08/2019): increase metformin to 1gm [...] LDL-C. Travis SS et al. POOJA. 2013;310(19): 3975-8621 (http://education.LearnUpon/faq/OZU066) CHOL/HDL RATIO 3.7 <5.0 (calc) [facility] HDL CHOLESTEROL 102 <130 mg/dL (calc) [facility] Comment: For patients with diabetes plus 1 major ASCVD risk factor, treating to a non-HDL-C goal of <100 mg/dL (LDL-C of <70 mg/dL) is considered a therapeutic option. 07/04/2019 8:24 AM CDT 07/05/2019 3:23 AM CDT Narrative Resulting Agency Comment Performing Organization Information: Site ID: [place] Name: [employer] [facility] Address: [address] [place] [address] Director: Karlos Crump D.O., MPH Mildred Price CEO [employer] CO FOUNDER LABORATORY Final Result Performing Organization Address [facility] de Phone Number [employer] ORDERS * HEMOGLOBIN, GLYCOSYLATED (07/04/2019 8:13 AM CDT) HGB A1C 7.0 [facility] Blood specimen (specimen) 07/04/2019 8:13 AM CDT us Mildred Price CEO [employer] FOUNDER LABORATORY Final Result Performing Organization Address [facility] Co de Phone Number [facility] [address] [place] [address], from Last 3 Months or Most Recently Relevant to Health Maintenance Insurance [id number] Care Teams Portuguese Tutor Relationship Specialty Start Date End Date Mildred Price NP PCP - General NURSE PRACTITIONER 12/21/18
--- OUTSIDE RECORDS SUMMARY | 2024-12-05 21:33 | XMS_ITS | Encounter Summary ---
Author Organization [facility] Address [address] [place] [address] Care Team Providers Care Manager Emergency Name Role Phone Mildred Price [employer] Primary Care Provider Unavaila ble Encounter Details Date Type Department Care Team (Latest Contact Info) Description 04/19/2018 Abstract [facility] , Ron Long MD Social [...] on filedocumented in this encounter Care Teams Manager Emergency Relationship Specialty Start Date End Date Mildred Price NP PCP - General NURSE PRACTITIONER 12/21/18 documented as of this encounter
[2024-12-05] MEDS: AMOXICILLIN/CLAVULANATE K 875-125 MG TAB 1 TABLET PO (21:44)
[2024-12-05 22:15] VITALS: BP 121/73; PULSE 71; RESP 20; TEMP 36.7; O2SAT 100
--- NOTE | 2024-12-05 22:54 | PC.NURSE ---
2215-RIGHT GREAT TOE PUNCTURE WOUND DRESSED WITH BANDAIDES X 2. SURGICAL BOOTIES APPLIED OVER RIGHT FOOT BEFORE PATIENT PUTTING ON SHOE.
== END 2024-12-05 22:19 | disposition home or self-care (01) ==
PROVIDERS: Emergency Provider Emergency Medicine; PCP Family Medicine
DX: S91.131A Puncture wound without foreign body of right great toe without damage to nail, initial encounter (principal); W45.0XXA Nail entering through skin, initial encounter
CPT/HCPCS: 73660; 99283; A9270